=== PATIENT | female | born 1985 | race Caucasian/White ===

== ENCOUNTER 2020-10-03 08:31 | Outpatient (REF) | payer BC, SELFPAY ==
[2020-10-03 11:23] LABS: Glucose Urine UA NEG (NEG); Leukocyte Esterase Urine NEG (NEG); Nitrite Urine NEG (NEG); Specific Gravity - Urine 1.025 (1.005-1.025); Urine Blood 1+ (NEG); Urine Ketones NEG (NEG); Urine Protein NEG (NEG-TRACE)
[2020-10-03 11:24] LABS: Hematocrit 37.4 % (37-47); Hemoglobin 12.9 g/dl (12.0-16.0); Mean Corpuscular HGB Conc 34.5 g/dl (31.0-35.0); Mean Corpuscular Hemoglobin 31.1 pg (27.0-33.0); Mean Corpuscular Volume 90.1 fL (80-98); Mean Platelet Volume 9.7 fL (9.4-12.3); Platelet Count 328 X10*3/uL (160-400); Red Blood Count 4.15 X10*6/uL (4.20-5.50); Red Cell Distribution Width 12.2 % (11.0-16.0); White Blood Count 5.9 X10*3/uL (4.8-10.8)
[2020-10-03 11:28] LABS: Color Urine YELLOW
[2020-10-03 11:29] LABS: Appearance Urine HAZY
[2020-10-03 12:02] LABS: Alanine Aminotransferase 26 U/L (0-31); Alkaline Phosphatase 38 U/L (39-117); Anion Gap 13 (12-20); Aspartate Amino Transferase 24 U/L (5-31); Bilirubin Total 0.7 mg/dL (0.0-1.0); Blood Urea Nitrogen 13 mg/dL (9-16); Calcium 9.2 mg/dL (8.4-10.2); Carbon Dioxide 23 mmol/L (22-29); Chloride 105 mmol/L (96-108); Cholesterol 161 mg/dL; Estimated Glomerular Filt Rate > 60; Glucose Fasting 92 mg/dL (60-99); HDL Cholesterol 62 mg/dL; LDL Cholesterol Calculated 80 mg/dl; Sodium 137 mmol/L (135-145); Total Protein 7.1 g/dL (6.5-8.0); Triglycerides 99 mg/dL
[2020-10-03 12:08] LABS: TSH reflex Free T4 1.53 mIU/mL (0.32-4.0)
[2020-10-03 12:31] LABS: Bacteria Urine 1+ /LPF; Mucus Urine TRACE /LPF; RBC Urine 0-2 /HPF (0); Squamous Epithelial Cell Urine 1+ /LPF; WBC Urine 0-2 /HPF (0-4)
== END 2020-10-03 08:32 | disposition home or self-care (01) ==
LOC: HO.HMGCLDS 08:31
PROVIDERS: PCP Internal Medicine; Visit Provider Internal Medicine
DX: Z00.00 Encounter for general adult medical examination without abnormal findings (principal)
CPT/HCPCS: 36415; 80053; 80061; 81001; 84443; 85027

== ENCOUNTER 2020-10-03 10:12 | Outpatient (REF) | payer BC, SELFPAY | END 2020-10-03 10:13 | disposition home or self-care (01) | LOC: HO.LAB 10:12 | PROVIDERS: Visit Provider Internal Medicine | DX: Z00.00 Encounter for general adult medical examination without abnormal findings (principal) | CPT/HCPCS: 88141; 88142 ==

== ENCOUNTER 2021-06-24 13:00 | Outpatient (RCR) | payer BC, SELFPAY ==
--- NOTE | 2021-05-16 17:15 | MHC.PT.EP ---
[facility] [place] [facility] [place] [facility] [place] [facility] [address] [phone] F: [phone] F: [phone] F: [phone] F: [phone] Physical Therapy Plan of Care Date of Evaluation: Date of Surgery: Diagnosis: L Achilles tendonitis. Assessment: Pt is a 36 y/o female referred to PT for eval and treat of Achilles tendonitis of L ankle who presents with signs and Sx consistent with L ankle dysfunction resulting in decreased tolerance for ambulating for duration, performing fitness activities, and discomfort with transitional movements from sitting/ laying for duration to standing and walking secondary to increased L LE tissue tension, decreased L ankle and B hip strength, decreased tandem stance and L SLS balance, mild pronation and pain. Pt is deemed an appropriate candidate to receive skilled PT in order to address her physical limitations to improve her functional ability. Frequency and Duration: The patient will be seen 2 x / wk x 5 wks. Short Term Goals: Initiate HEP with evidence of compliance. Pt will no longer report pain when initiating standing and walking after a rest. Cupola Liner Goals: I with HEP. Improve L ankle EV MMT to > 4+/5. Pt will be able to walk > 1 mile with managed Sx. Treatment Plan: Modalities to reduce pain, spasms and effusion. Manual therapy to restore motion and function. Therapeutic exercise to improve strength and flexibility. Neuromuscular re-education for posture and balance. Therapeutic activities to return to functional activities of daily living. Electronically signed by: Daniel Branham PT. Please sign and return to therapist. Thank you for your referral.
--- NOTE | 2021-07-10 18:30 | MHC.PT.DC ---
[facility] [place] Office [place] Office [place] Office [address] Luis Carlos Balderas [address] [phone] F: [phone] F: [phone] F: [phone] F: [phone] Physical Therapy Discharge Report Diagnosis: L Achilles tendonitis. Date of Surgery: Date of Evaluation: 05/15/21 Date of Discharge: 07/10/21 Treatments to Date: 10 Cancellations to Date: No Shows to Date: Discharge Status: Achieved Goals Improved Function Independent with HEP Patient Elected to Stop Discharge Summary: 07/10: pt called and reported that she is feeling good and asked to be DC. Pt was able to achieve all of her goals, address her physical impairments, and improve her functional abilities. Electronically signed by: Daniel Branham PT. Please sign and return to therapist. Thank you for your referral.
== END 2021-07-10 18:30 | disposition home or self-care (01) ==
LOC: HO.PTCHIC 13:00
PROVIDERS: PCP Internal Medicine; Visit Provider Internal Medicine
DX: M76.60 Achilles tendinitis, unspecified leg (principal)
CPT/HCPCS: 97110; 97112; 97140; 97161; 97530

== ENCOUNTER 2022-01-27 12:18 | Outpatient (REF) | payer BC, SELFPAY ==
[2022-01-27 14:01] LABS: Hematocrit 38.1 % (37.0-47.0); Hemoglobin 13.1 g/dl (12.0-16.0); Mean Corpuscular HGB Conc 34.4 g/dl (31.0-35.0); Mean Corpuscular Hemoglobin 30.5 pg (27.0-33.0); Mean Corpuscular Volume 88.8 fL (80.0-98.0); Mean Platelet Volume 9.4 fL (9.4-12.3); Platelet Count 328 X10*3/uL (160-400); Red Blood Count 4.29 X10*6/uL (4.20-5.50); Red Cell Distribution Width 12.3 % (11.0-16.0); White Blood Count 6.9 X10*3/uL (4.8-10.8)
[2022-01-27 14:07] LABS: Appearance Urine HAZY; Color Urine YELLOW; Glucose Urine UA NEG (NEG); Leukocyte Esterase Urine 1+ (NEG); Nitrite Urine NEG (NEG); PH 6.5 (5.0-8.0); Urine Blood 2+ (NEG); Urine Ketones NEG (NEG); Urine Protein NEG (NEG-TRACE)
[2022-01-27 14:07] LABS: Estimated Average Glucose 97 mg/dL
[2022-01-27 14:15] LABS: Alanine Aminotransferase 66 U/L (0-31); Albumin Level 4.1 g/dL (3.5-5.0); Alkaline Phosphatase 40 U/L (39-117); Anion Gap 12 (12-20); Aspartate Amino Transferase 36 U/L (5-31); Bilirubin Total 1.3 mg/dL (0.0-1.0); Blood Urea Nitrogen 10 mg/dL (9-16); Calcium 9.6 mg/dL (8.4-10.2); Carbon Dioxide 25 mmol/L (22-29); Chloride 104 mmol/L (96-108); Cholesterol 192 mg/dL; Estimated Glomerular Filt Rate > 60; Glucose Fasting 88 mg/dL (60-99); HDL Cholesterol 55 mg/dL; LDL Cholesterol Calculated 121 mg/dl; Sodium 137 mmol/L (135-145); Total Protein 7.1 g/dL (6.5-8.0); Triglycerides 80 mg/dL
[2022-01-27 14:27] LABS: Bacteria Urine 2+ /LPF; Squamous Epithelial Cell Urine 2+ /LPF
[2022-01-27 14:29] LABS: TSH reflex Free T4 1.35 uIU/mL (0.32-4.0)
== END 2022-01-27 12:19 | disposition home or self-care (01) ==
LOC: HO.HMGCLDS 12:18
PROVIDERS: Visit Provider Internal Medicine
DX: Z00.00 Encounter for general adult medical examination without abnormal findings (principal); I10 Essential (primary) hypertension; R73.9 Hyperglycemia, unspecified
CPT/HCPCS: 36415; 80053; 80061; 81001; 83036; 84443; 85027

== ENCOUNTER 2022-01-27 15:38 | Outpatient (REF) | payer BC, SELFPAY ==
[2022-01-29 17:01] LABS: HPV mRNA E6/E7 Detected (Not Detected)
== END 2022-01-27 15:39 | disposition home or self-care (01) ==
LOC: HO.LAB 15:38
PROVIDERS: Visit Provider Internal Medicine
DX: Z01.419 Encounter for gynecological examination (general) (routine) without abnormal findings (principal); Z11.51 Encounter for screening for human papillomavirus (HPV)
CPT/HCPCS: 87624; 88142

== ENCOUNTER 2022-03-04 12:08 | Outpatient (REF) | payer BC, SELFPAY ==
[2022-03-04 14:06] LABS: Alanine Aminotransferase 33 U/L (0-31); Albumin Level 4.1 g/dL (3.5-5.0); Alkaline Phosphatase 39 U/L (39-117); Aspartate Amino Transferase 24 U/L (5-31); Bilirubin Direct 0.4 mg/dL (0.0-0.5); Bilirubin Total 1.2 mg/dL (0.0-1.0); Total Protein 7.5 g/dL (6.5-8.0)
== END 2022-03-04 12:09 | disposition home or self-care (01) ==
LOC: HO.HMGCLDS 12:08
PROVIDERS: PCP Internal Medicine; Visit Provider Internal Medicine
DX: R79.89 Other specified abnormal findings of blood chemistry (principal)
CPT/HCPCS: 36415; 80076

== ENCOUNTER 2022-07-15 09:24 | Outpatient (REF) | payer BC, SELFPAY ==
[2022-07-20 17:01] LABS: Transglutaminase Ab IgG 1.2 U/mL; Transglutaminase IgA <1.0 U/mL
== END 2022-07-15 09:25 | disposition home or self-care (01) ==
LOC: HO.LAB 09:24
PROVIDERS: PCP Internal Medicine; Visit Provider Nurse Practitioner Family
DX: R10.9 Unspecified abdominal pain (principal)
CPT/HCPCS: 36415; 86364

== ENCOUNTER 2022-09-30 11:05 | Outpatient (REF) | payer BC, SELFPAY ==
--- NOTE | ~2022-09-30 | XR_ITS ---
EXAMINATION: XR SINUSES CLINICAL INFORMATION: Chronic sinusitis COMPARISON: None TECHNIQUE: 4 views of the sinuses were obtained. FINDINGS: Paranasal sinuses appear clear without air-fluid levels. No fractures are identified. No radiodense foreign bodies. The mastoid air cells are well aerated. XR/XR sinus min 3V IMPRESSION: The paranasal sinuses appear clear.
== END 2022-09-30 11:06 | disposition home or self-care (01) ==
LOC: HO.HMGCX 11:05
PROVIDERS: PCP Internal Medicine; Visit Provider Internal Medicine
DX: J32.9 Chronic sinusitis, unspecified (principal)
CPT/HCPCS: 70220

== ENCOUNTER 2022-10-21 15:13 | Outpatient (REF) | payer BC, SELFPAY ==
[2022-10-21 17:13] LABS: Anion Gap 10 (12-20); Blood Urea Nitrogen 18 mg/dL (9-16); Calcium 9.7 mg/dL (8.4-10.2); Carbon Dioxide 26 mmol/L (22-29); Chloride 105 mmol/L (96-108); Estimated Glomerular Filt Rate 52; Glucose Random 115 mg/dL (60-115); Potassium 4.1 mmol/L (3.3-5.1); Sodium 137 mmol/L (135-145)
== END 2022-10-21 15:14 | disposition home or self-care (01) ==
LOC: HO.HMGCLDS 15:13
PROVIDERS: PCP Internal Medicine; Visit Provider Internal Medicine
DX: I10 Essential (primary) hypertension (principal)
CPT/HCPCS: 36415; 80048

== ENCOUNTER 2022-11-26 08:00 | Day surgery (SDC) | payer BC, SELFPAY ==
[2022-11-20 14:02] VITALS: BMI 32.1
[2022-11-26 08:08] VITALS: BP 142/87; PULSE 82; RESP 18; TEMP 36.1; O2SAT 98
[2022-11-26 08:14] LABS: UPreg QC Valid YES
[2022-11-26 08:15] LABS: Urine Pregnancy NEGATIVE (NEGATIVE)
[2022-11-26] MEDS: Lactated Ringers 1,000 ML 50 ML IVCONT (08:24)
--- NOTE | 2022-11-26 09:08 | MHC.SHP ---
Pre-Procedural Eval Section A Date of Service: 11/26/22 Section B Chief Complaint: Gastro-esophageal reflux disease without esophagit Relevant Family History (Specify if Yes): No Relevant Social History: None Present Medications: see Short Stay Collaborative assessment Medical History: Significant History (Achilles tendinitis ADHD Annual physical exam Depression Elevated LFTs HPV test positive HTN (hypertension) Hyperglycemia Obesity) History of Previous Operations: Relevant previous surgery/procedure and date(s) (H/O gastric bypass History of esophagogastroduodenoscopy (EGD) Hx of colonoscopy) Allergies: Allergies Allergy/AdvReac Type Severity Reaction Status Date / Time No Known Allergies Allergy Verified 10/21/22 14:40 Review of Systems Sugical H&P ROS: Negative: Constitution, Cardiovascular, Respiratory, Neurological, Psychiatric, Hem-Onc, Allergic/Immunologic, Gastrointestinal, Genitourinary, Musculoskeletal, Integumentary, Endocrine and Eyes/Ears/Nose/Throat Exam Surgical H&P Exam: Normal: HEENT, Normal: Heart, Normal: Lungs, Normal: Extremities, Normal: Abdomen, Normal: Skin and Normal: Neurological Plan Diagnosis/Plan: Unchanged I have reviewed the history and physical and performed a pertinent physical examination on my patient. No changes have occurred unless specified. Time Spent With Patient Time: Total time managing care of this patient today ____ minutes.
--- NOTE | 2022-11-26 09:14 | HO.ANESPROP2 ---
HPI - Anesthesia Eval Consult details Narrative: 37 F for EGD PMFSH Active Problems Active Problems: All Active Problems (Updated 09/30/22 @ 10:59 by Colette Mckinnon MD) GERD (gastroesophageal reflux disease) (Acute) Sinusitis (Acute) Elevated LFTs (Acute) HPV test positive (Acute) Hyperglycemia (Acute) Depression (Acute) Achilles tendinitis (Acute) HTN (hypertension) (Acute) Annual physical exam (Acute) Past Medical History Medical History Achilles tendinitis ADHD Annual physical exam Depression Elevated LFTs HPV test positive HTN (hypertension) Hyperglycemia Obesity Family History Family History Father HTN (hypertension) Mother HTN (hypertension) Diabetes mellitus Other Mental health disorder Family history of problems with anesthesia: No Surgical History Surgical History H/O gastric bypass History of esophagogastroduodenoscopy (EGD) Hx of colonoscopy History of Problems with Anesthesia: No Social History Social History Household Members Other:: well balanced diet, Housing: House Alcohol intake: current Alcohol intake frequency: holidays/special occasions only Patient Tobacco Use Status: Current everyday Tobacco user e-Cigarette/Vaping Use: Never Used Second Hand Smoke Exposure: No Are you DNR?: No Advance Directives: No Advance Directives Information Provided: Yes Nutrition Risks: No Nutritional Risk Patient : No Current occupational status: employed Cognitive needs: No Hearing needs: No Vision needs: No Meds Allergies Allergy/AdvReac Type Severity Reaction Status Date / Time No Known Allergies Allergy Verified 10/21/22 14:40 Active Medications: Current Medications Lactated Ringer's (Lr) 1,000 mls @ 50 mls/hr IVCONT .Q20H MEL Last Admin: 11/26/22 08:24 Dose: 50 mls/hr Home Medications Medication Instructions Recorded Confirmed Last Taken Type buspirone 15 mg tablet 15 mg PO TID 10/03/20 11/20/22 11/26/22 History dextroamphetamine-amphetamine 10 1 tab PO TID 10/03/20 10/21/22 Unknown History mg tablet escitalopram oxalate 20 mg tablet 30 mg PO DAILY 10/03/20 11/20/22 11/26/22 History lorazepam 0.5 mg tablet 0.5 mg PO DAILY PRN Anxiety 10/03/20 11/20/22 Unknown History dextroamphetamine-amphetamine ER 1 cap PO QAM 01/27/22 11/20/22 Unknown History 20 mg 24hr capsule,extend release Exam Exam Date and Time: November 26, 2022 0914 Height,Weight and Vital Signs: Height 5 ft 6 in Weight 199 lb Last Vital Signs Temp 97 F 11/26/22 08:08 Pulse 82 11/26/22 08:08 Resp 18 11/26/22 08:08 BP 142/87 H 11/26/22 08:08 Pulse Ox 98 11/26/22 08:08 O2 Del Method 11/26/22 08:08 Pertinent Lab Results Pertinent Lab Results: Laboratory Tests 11/26/22 08:08 Urine Test NEGATIVE Airway Mallampati Class: II TM Dist: >3cm Neck ROM: Full Loose/Missing/Broken Teeth: No Assessment and Plan Assessment Anesthesia Assessment: Anesthesia Plan Discussed and Chart Reviewed Final Anesthetic Review Family History of Problems with Anesthesia: No History of Problems with Anesthesia: No NPO: Yes ASA Class: II Final Preanesthetic Review: No Changes in Pt Med Stat, Meds/Allgs Chart Reviewed, Consent Obtained/Reviewed and Anes Risks/Benef Reviewed Patient Risk: Low Procedure Risk: Low Anesthetic Plan Anesthetic Plan: MAC: Disposition: Standard PACU
--- NOTE | 2022-11-26 09:37 | W.PM.OPN ---
Operative Note Operative Note Date of Service: 11/26/22 Narrative: Procedure Description: EGD Indication: GERD Anesthesia: MAC FLEXIBLE TRANSORAL UPPER GASTROINTESTINAL ENDOSCOPY UPPER ENDOSCOPY Consent: Indications for the procedure and potential complications of bleeding, perforation, reaction to medications and missed diagnosis were discussed with the patient and informed consent was obtained. Instrument: Olympus GIF H 190 J mid size upper endoscope Monitoring: Vital signs and clinical assessment, continuous EKG monitoring, Pulse oximetry, Carbon Dioxide monitoring and blood pressure monitoring were done throughout the procedure. Procedure: The patient was placed in the left lateral decubitis position and pre-procedure medications were administered and a bite block was placed. The endoscope was inserted into the mouth and advanced under direct vision to the third part of duodenum. A careful inspection was made as the upper endoscope was withdrawn including a retroflexed examination of the proximal stomach; Findings and interventions are described below. HX of gastric bypass 2013 Findings: Larynx:normal Esophagus: GE junction at 35 cm, diaphragm hiatus at 38 cm, consistent with 3 cm hiatal hernia, aptchy slamon pink tissue noted at GEJ with one possible short segment of barretts mucosa, bx taken from GEJ, distal and proximal esophagus. Small inlet patches seen proximal esophagus Stomach pouch: Normal. Biopsies were obtained. Grade 3 flap valve on retroflexed examination of the cardia. jejunum: Normal, bx taken Intervention: Biopsies as noted above Impression/Findings: hiatal hernia inlet patch suspected barretts esophagus PLAN: continue with PPi as it is working repeat EGD in 1-2 yrs with WATS next time. GERD precautions,.
[2022-11-26 09:45] VITALS: BP 98/73; PULSE 78; RESP 20; TEMP 36.6; O2SAT 97
[2022-11-26 10:00] VITALS: BP 138/82; PULSE 75; RESP 18; TEMP 36.1; O2SAT 100
== END 2022-11-26 10:23 | disposition home or self-care (01) ==
PROVIDERS: Anesthesiology; PCP Internal Medicine; Visit Provider Internal Medicine Gastroenterology
PROC: 0DJ08ZZ Inspection of Upper Intestinal Tract, Via Natural or Artificial Opening Endoscopic (ICD-10-PCS; CPT 43235; principal; 2022-11-26 09:20)
DX: K21.9 Gastro-esophageal reflux disease without esophagitis (principal); K44.9 Diaphragmatic hernia without obstruction or gangrene; K22.70 Barrett's esophagus without dysplasia; K31.7 Polyp of stomach and duodenum
CPT/HCPCS: 43239; 81025; 88305; 88342

== ENCOUNTER → 2022-12-09 08:00 | Outpatient (BNVA) | payer BC, SELFPAY | PROVIDERS: PCP Internal Medicine; Referring Provider Internal Medicine; Visit Provider Nurse Practitioner Family | DX: Z13.89 Encounter for screening for other disorder (principal) ==

== ENCOUNTER 2023-02-03 06:21 | Outpatient (REF) | payer BC, SELFPAY ==
[2023-02-03 11:41] LABS: Hematocrit 38.5 % (37.0-47.0); Mean Corpuscular HGB Conc 33.8 g/dl (31.0-35.0); Mean Corpuscular Hemoglobin 30.7 pg (27.0-33.0); Mean Platelet Volume 9.4 fL (9.4-12.3); Platelet Count 328 X10*3/uL (160-400); Red Blood Count 4.23 X10*6/uL (4.20-5.50); White Blood Count 6.3 X10*3/uL (4.8-10.8)
[2023-02-03 11:49] LABS: Estimated Average Glucose 100 mg/dL; Hemoglobin A1c % 5.1 %
[2023-02-03 12:08] LABS: Alanine Aminotransferase 31 U/L (0-31); Albumin Level 3.8 g/dL (3.5-5.0); Alkaline Phosphatase 41 U/L (39-117); Anion Gap 11 (12-20); Aspartate Amino Transferase 24 U/L (5-31); Blood Urea Nitrogen 14 mg/dL (9-16); Calcium 9.5 mg/dL (8.4-10.2); Carbon Dioxide 24 mmol/L (22-29); Chloride 106 mmol/L (96-108); Cholesterol 185 mg/dL; Estimated Glomerular Filt Rate > 60; Glucose Fasting 108 mg/dL (60-99); HDL Cholesterol 66 mg/dL; LDL Cholesterol Calculated 102 mg/dl; Potassium 4.1 mmol/L (3.3-5.1); Sodium 137 mmol/L (135-145); Total Protein 6.7 g/dL (6.5-8.0); Triglycerides 89 mg/dL
== END 2023-02-03 06:22 | disposition home or self-care (01) ==
LOC: HO.HMGCLDS 06:21
PROVIDERS: PCP Internal Medicine; Visit Provider Internal Medicine
DX: Z00.00 Encounter for general adult medical examination without abnormal findings (principal); I10 Essential (primary) hypertension; R73.9 Hyperglycemia, unspecified
CPT/HCPCS: 36415; 80053; 80061; 83036; 85027

== ENCOUNTER → 2023-03-02 07:50 | Outpatient (REF) | payer BC, SELFPAY ==
--- NOTE | 2023-03-02 07:54 | CA_ITS ---
Transthoracic Echocardiogram Patient (Last, First, Middle): Sally Munoz, Gender: Female Date of : 1985 Age: 38 Procedure Date: 03/02/2023 Procedure Type: Transthoracic Echocardiogram Location: OP Height: 167.64 cm Weight: 90.72 kg BSA: 2.00 m2 Heart Rate: bpm BP: 130 / 88 mmHg Creative Services Director: TO Referring MD: Colette Mckinnon MD Symptoms: R00.0 - Tachycardia, unspecified Study Quality: Fair/Contrast ECG Rhythm: Sinus Conclusions: - The left ventricular systolic function is hyperdynamic. The visually estimated ejection fraction is >70%. - No obvious valvular pathology seen on this study. Findings Procedure Information Contrast agent, definity, is being given per protocol without apparent complications. Left Ventricle Normal left ventricular cavity size. The left ventricular systolic function is hyperdynamic. The visually estimated ejection fraction is >70%. There is no evidence of regional wall motion abnormalities. There is mild septal asymmetric hypertrophy. Slight gradient across the LVOT; no significant change with Valsalva. Right Ventricle Normal right ventricular cavity size and systolic function. Atria Both atria are normal in size. Aortic Valve There is a normal trileaflet aortic valve. There is no aortic valve stenosis. There is no aortic valve regurgitation. Mitral Valve The mitral valve appears normal. There is trace mitral valve regurgitation. There is no mitral valve stenosis. Pulmonic Valve The pulmonic valve is likely normal. Tricuspid Valve There is trace tricuspid valve regurgitation. There is no evidence of pulmonary hypertension. Great Vessels The asc aorta is normal in size. Venous The inferior vena cava is normal in size and collapses less than 50% with inspiration. Pericardium/Pleural There is no evidence of pericardial effusion. Prior Study Comparison No prior study available for comparison. Recommendations, Care & Conclusions No obvious valvular pathology seen on this study. Measurements 2D Linear Measurements IVSd: 1.19 0.6-0.9/0.6-1.0 cm LVIDd: 4.12 3.9-5.3/4.2-5.9 cm LVIDd Index: 2.06 2.4-3.2/2.2-3.1 cm/m2 LVIDs: 2.36 2.0-3.6 cm LVPWd: 0.91 0.7-1.1 cm LA Diam: 3.30 2.7-3.8/3.0-4.0 cm LAIDs Index: 1.65 1.5-2.3 cm/m2 LV Mass: 176.93 67-162/88-224 g LV Mass Index: 88.47 43-95/49-115 g/m2 LVOT Diam: 2.20 3.0+(-)1.3 cm 2D Systolic Function EF 4C: 61.00 >55% EF 2C: 59.70 >55% EF BiP: 60.20 >55% Mitral Valve MV Pk E: 0.68 MV PK A: 0.89 MV Decel Time: 191.00 E/A: 0.80 E'Lateral: 8.81 E'Medial: 7.51 E/E' Med: 9.10 E/E' Lat: 7.70 PHT: 56.00 MVA PHT: 3.93 Decel [place]: 3.57 Aortic Valve AoV Pk Jay[place]: 1.71 AoV Mn Jay[place]: 1.25 AoV VTI: 0.32 AoV Pk Grad: 12.00 Aov Mn Grad: 7.00 ENDER Cont.VTI: 3.94 LVOT LVOT Pk [place]: 1.67 LVOT Mn [place]: 1.23 LVOT VTI: 0.33 LVOT Pk Grad: 11.00 LVOT Mn Grad: 7.00 LVOT Diam: 2.20 LVOT Area: 3.80 Diastolic Function MV Pk E: 0.68 MV Pk A: 0.89 E/A: 0.80 E'Medial: 7.51 E/E' Med: 9.10 E' Laterial: 8.81 E/E' Lat: 7.70 Right Ventricle TAPSE (mm): 24.80 TVS' Jay[place]: 13.20 Tricuspid Valve TR Pk Jay[place]: 2.59 TR Pk Grad: 27.00 RA Press: 8.00 RVSP: 35.00 Great Vessels Aorta Sinus of Valsalva: 3.32 2.0-3.[address] [place]: 2.69 1.7-3.4 cm Ao Asc: 3.20 2.1-3.4 cm Updated in Other Vendor System with Status of Final Merrill Montero MD electronically signed on 03/03/2023 11:56:15 AM with status of Final
--- NOTE | 2023-03-02 07:54 | HM_ITS ---
* Total monitoring time 2 days. * Underlying rhythm is sinus. Average ventricular rate 99/Min. Range 62 to 165/Min. * About 43% of the time, rate > 100/Min. * Extremely rare supraventricular and ventricular ectopy. * No significant pauses or AV blocks. * No patient markers or events in diary. MTDD
== END ==
LOC: HO.CARD 07:50
PROVIDERS: PCP Internal Medicine; Visit Provider Internal Medicine
DX: R00.0 Tachycardia, unspecified (principal); I49.3 Ventricular premature depolarization
CPT/HCPCS: 93225; 93306; Q9957

== ENCOUNTER 2023-06-08 07:54 | Outpatient (AMB) | payer BC, SELFPAY ==
--- NOTE | 2023-06-08 08:01 | MHC.OFFVIS ---
Intake Vital Signs 06/08/23 08:10 Height 5 ft 6 in Weight 199 lb BMI 32.1 BP 150/73 H Blood Pressure Location Lt brachial Position Sitting Pulse 120 H Intake Visit Reasons: 6 month follow up Intake Note: Patient follow up for GERD. Patient denies any GI issues, Omeprazole is working really good for her. Court Attendant Required: No Accompanied by: Self / Same As Patient Allergies No Known Allergies Allergy (Verified 06/08/23 08:00) HPI 6 month follow up HPI Details LAST VISIT GERD (gastroesophageal reflux disease) Discussed with patient avoiding dietary triggers and is hiking. Staying upright for minimum 3 hours after meals discussed with patient. Continue omeprazole. Continue trying to lose weight. Increase exercise. Avoid stressors as much as possible Bonilla's esophagus determined by biopsy Patient diagnosed with Bonilla's at the GE junction. Continue omeprazole. Weight loss discussed with patient. Healthy eating habits. I will see patient in 6 months. Patient will need to have upper endoscopy repeated in 1 year or so. Patient is agreeable to this plan and verbalizes understanding of instructions. She was given the opportunity to ask questions and all questions answered. TODAY'S VISIT: Patient is here today for follow-up. Patient reports that since she started omeprazole she has been doing well. Patient reports that she has been taking every morning. Denies any acid reflux, dyspepsia, dysphagia or odynophagia. Patient denies any GI concerning symptoms. Patient reports that she is feeling well. Able to tolerate food without any issues. Moving her bowels well. Denies melena, hematochezia, unintentional weight loss or ribbon like stools. [facility] Medical History Achilles tendinitis ADHD Annual physical exam Depression Elevated LFTs HPV test positive HTN (hypertension) Hyperglycemia Obesity Surgical History H/O gastric bypass History of esophagogastroduodenoscopy (EGD) Hx of colonoscopy Family History Father HTN (hypertension) Mother HTN (hypertension) Diabetes mellitus Other Mental health disorder Social History Household Members Other:: well balanced diet, Housing: House Alcohol intake: current Alcohol intake frequency: holidays/special occasions only Patient Tobacco Use Status: Current everyday Tobacco user e-Cigarette/Vaping Use: Never Used Second Hand Smoke Exposure: No Current occupational status: employed Cognitive needs: No Hearing needs: No Vision needs: No Review of Systems Const Denies weight gain and Denies weight loss ENT Reports no additional complaints, Denies dysphagia and Denies odynophagia Card Reports no additional complaints Resp Reports no additional complaints GI Denies abdominal pain, Denies belching, Denies melena, Denies bloating, Denies change in bowel habits, Denies dysphagia, Denies excessive flatus, Denies dyspepsia, Denies heartburn, Denies diarrhea, Denies loose stools, Denies nausea, Denies odynophagia and Denies vomiting Reports no additional complaints Musc Reports no additional complaints Neuro Reports no additional complaints Psych Reports no additional complaints Endo Reports no additional complaints Physical Exam Const General: healthy appearing, no acute distress and well developed Nutritional Appearance: obese Orientation/consciousness: patient oriented x3 HEENT Head: Yes normal to inspection, Yes normocephalic and Yes atraumatic Face and sinus: Yes normal facial exam Mouth: Normal oral and palatal mucosa present Throat: Yes posterior oropharynx normal, Yes tonsils normal and Yes uvula midline Eyes General: appearance normal, both eyes and all related structures Neck Neck: Yes normal visual inspection, Yes full ROM and Yes trachea midline Thyroid: Thyroid normal Resp Effort & Inspection: normal respiratory effort, able to speak in complete sentences, no tracheal deviation and symmetric chest movement Auscultation: clear to auscultation bilaterally Cardio Rate: regular rate Heart sounds: S1 normal heart sound present and S2 normal heart sound present GI Inspection: Yes normal to inspection, No distended and Yes obesity Palpation (GI): Soft to palpation, not firm, nontender and No hepatosplenomegaly present Auscultation: normal bowel sounds General: Yes no CVA tenderness Back/Spine/Pelvis Back: no CVA tenderness Skin General skin exam: elasticity normal, turgor normal and dry skin Neuro General: patient oriented x3 Psych Appearance: grossly normal Mental Status: mental status grossly normal Speech and movement: Normal speech and movement present Assessment & Plan Assessment & Plan (1) GERD (gastroesophageal reflux disease): Code(s): K21.9 - Gastro-esophageal reflux disease without esophagitis Qualifiers: Esophagitis presence: esophagitis presence not specified Qualified Code(s): K21.9 - Gastro-esophageal reflux disease without esophagitis Plan: Continue omeprazole 20 mg every morning half an hour before breakfast. Avoid dietary triggers and late night snacking. Staying upright for minimum 3 hours after meals discussed with patient. (2) Bonilla's esophagus determined by biopsy: Code(s): K22.70 - Bonilla's esophagus without dysplasia Plan: Bonilla's esophagus found on upper endoscopy in November of 2022. Will repeat upper endoscopy within a year or so. Patient can continue treatment with omeprazole every morning. Avoid dietary trigger is. Patient will call our office if she will have any issues. I will see her in 1 year, sooner on as needed basis. Patient is agreeable to this plan and verbalizes understanding of instructions. She was given the opportunity to ask questions and all questions answered. Thank you for allowing me to participate in her care Medications: Refilled omeprazole 20 mg PO DAILY 90 caps 3RF Coding Level of Care Code Est Pt Level 3 (66886) Diagnoses GERD (gastroesophageal reflux disease) K21.9 Esophagitis presence: esophagitis presence not specified Bonilla's esophagus determined by biopsy K22.70 Time Spent (min) 25 Comment 15 minutes spent with patient and additional 10 minutes spent reviewing her records
[2023-06-08 08:10] VITALS: BP 150/73; PULSE 120; BMI 32.1
== END 2023-06-08 08:22 | disposition home or self-care (01) ==
PROVIDERS: PCP Internal Medicine; Visit Provider Nurse Practitioner Family
DX: K21.9 Gastro-esophageal reflux disease without esophagitis (principal); K22.70 Barrett's esophagus without dysplasia
CPT/HCPCS: 99213

== ENCOUNTER → 2023-06-08 07:54 | Outpatient (BNVA) | payer BC, SELFPAY | PROVIDERS: PCP Internal Medicine; Visit Provider Nurse Practitioner Family ==

== ENCOUNTER 2023-11-03 13:11 | Emergency (ER) | payer OTHER, BC, SELFPAY ==
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
[2023-11-03 14:02] VITALS: BP 129/69; PULSE 99; RESP 16; TEMP 37; O2SAT 99; BMI 32.6
--- NOTE | 2023-11-03 14:02 | ED_ITS ---
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 your right wrist/hand, you began to have pain, numbness, tingling within the right fingers, you are unable to move the fingers, or the pain becomes unbearable please return to the emergency department as these are all signs that the splint needs to be removed. YOU NEED TO FOLLOW-UP WITH ORTHOPEDICS THIS WEEK. YOU HAVE BEEN PROVIDED WITH A REFERRAL. CALL THEM TO MAKE AN APPOINTMENT. THEY WILL NOT CALL YOU. The x-ray of your right knee was normal. The x-ray of your right ankle shows minimal swelling, likely ankle sprain. The CT of your head/brain did not show acute bleed. The CT of your neck did not show acute fracture. The CT of your chest was normal. The CT of your abdomen shows bruising along your abdominal wall. No intra- abdominal bleeding. Oxycodone is a narcotic pain medication. Six tabs have been sent to your pharmacy for you to take as needed for pain. Zofran is anti emetic. Take this as needed for nausea. <PEARL Resendiz - Last Filed: 11/03/23 14:14> Prescriptions: New oxycodone 5 mg tablet 5 mg PO Q8H PRN (Reason: pain (scale score 7-10)) Qty: 6 0RF Rx Instructions: Partial Fill upon patient request. ondansetron 4 mg tablet,disintegrating 4 mg PO DAILY PRN (Reason: nausea and vomiting) 5 Days Qty: 10 0RF No Action desogestrel-ethinyl estradiol [Isibloom] 0.15-0.03 mg tablet 1 tab PO DAILY Qty: 112 3RF amlodipine 5 mg tablet 5 mg PO DAILY Qty: 90 3RF olmesartan-hydrochlorothiazide 40-25 mg tablet 1 tab PO DAILY Qty: 90 3RF buspirone 15 mg tablet 15 mg PO TID dextroamphetamine-amphetamine 10 mg tablet 1 tab PO TID lorazepam 0.5 mg tablet 0.5 mg PO DAILY PRN (Reason: Anxiety) escitalopram oxalate 20 mg tablet 20 mg PO DAILY dextroamphetamine-amphetamine 20 mg capsule,extended release 24hr 20 cap PO QAM omeprazole 20 mg capsule,delayed release(DR/EC) 20 mg PO DAILY Qty: 90 3RF <PEARL Resendiz - Last Filed: 11/03/23 14:14> Referrals: [facility] [Provider Group] - 3 days <PEARL Resendiz - Last Filed: 11/03/23 14:14> Stand Alone Forms: Work/School Release <PEARL Resendiz - Last Filed: 11/03/23 14:14> Interventions: ED Discharge Assessment Last Done: 11/03/23 19:51 <PEARL Resendiz - Last Filed: 11/03/23 14:14> Discharge Date/Time: 11/03/23 19:52 <PEARL Resendiz - Last Filed: 11/03/23 14:14>
[2023-11-03 14:43] LABS: MANUAL DIFF FLAG NO
[2023-11-03 14:49] LABS: Appearance Urine Clear; Color Urine Yellow; Glucose Urine UA Negative (Negative); Leukocyte Esterase Urine Negative (Negative); Nitrite Urine Negative (Negative); Specific Gravity - Urine 1.015 (1.005-1.025); Urine Blood Negative (Negative); Urine Ketones Negative (Negative); Urine Protein Negative (Neg-Trace)
[2023-11-03 14:50] LABS: Basophils Percent Auto 0.2 % (0-2); Eosinophils Absolute Auto 0.1 X10*3/uL (0.0-0.4); Eosinophils Percent Auto 0.9 % (0-4); Hematocrit 31.3 % (37.0-47.0); Imm Gran Abs Auto 0.04 X10*3/uL (0.00-0.03); Imm Gran Pct Auto 0.4 % (0.0-0.4); Lymphocytes Absolute Auto 1.7 X10*3/uL (1.2-4.9); Lymphocytes Percent Auto 19.4 % (20-40); Mean Corpuscular HGB Conc 35.1 g/dl (31.0-35.0); Mean Corpuscular Hemoglobin 30.9 pg (27.0-33.0); Mean Corpuscular Volume 87.9 fL (80.0-98.0); Mean Platelet Volume 8.8 fL (9.4-12.3); Monocytes Percent Auto 11.3 % (2-11); Neutrophils Percent Auto 67.8 % (45-73); Platelet Count 295 X10*3/uL (160-400); Red Blood Count 3.56 X10*6/uL (4.20-5.50); Red Cell Distribution Width 12.7 % (11.0-16.0); White Blood Count 8.9 X10*3/uL (4.8-10.8)
[2023-11-03 14:54] LABS: INTERNATIONAL NORM RATIO 0.9 (0.9-1.1); Prothrombin Time 11.1 SEC (11.1-13.3)
[2023-11-03 15:22] LABS: Alanine Aminotransferase 69 U/L (0-31); Albumin Level 3.7 g/dL (3.5-5.0); Alkaline Phosphatase 39 U/L (39-117); Anion Gap 13 (12-20); Aspartate Amino Transferase 56 U/L (5-31); Bilirubin Direct 0.4 mg/dL (0.0-0.5); Bilirubin Total 1.4 mg/dL (0.0-1.0); Blood Urea Nitrogen 21 mg/dL (9-16); Calcium 9.4 mg/dL (8.4-10.2); Carbon Dioxide 25 mmol/L (22-29); Chloride 100 mmol/L (96-108); Creatinine Clr Calc Pharmacy 106.3; Estimated Glomerular Filt Rate > 60; Glucose Random 142 mg/dL (60-115); HCG Quantitative < 2 mIU/mL; Lipase 13 U/L (8-78); Magnesium 1.5 mg/dL (1.6-2.6); Sodium 135 mmol/L (135-145); Total Protein 6.9 g/dL (6.5-8.0)
[2023-11-03] MEDS: Acetaminophen 325 MG TABLET 650 MG PO (15:58)
[2023-11-03] MEDS: Potassium Chloride ER 20 MEQ TAB.ER.PRT 40 MEQ PO (15:58)
[2023-11-03] MEDS: Magnesium Oxide 400 MG TABLET PO (15:59)
[2023-11-03 16:18] VITALS: BP 116/62; PULSE 91; RESP 16; O2SAT 100
[2023-11-03] MEDS: iohexoL 350 MG/ML 100 ML INFUS..BTL IV (17:09)
[2023-11-03] MEDS: Ondansetron ODT 4 MG TAB.RAPDIS TRANSLINGU (17:29)
[2023-11-03 18:00] VITALS: BP 114/60; PULSE 87; RESP 20; TEMP 36.8; O2SAT 100
--- NOTE | 2023-11-03 18:12 | PC.NURSE ---
repeat labs sent per order. placed on tele per jane corona. no distress. given new ice packs for wrist- declined ice to r knee. elevated w pillows.
[2023-11-03 18:25] LABS: Anion Gap 13 (12-20); Blood Urea Nitrogen 19 mg/dL (9-16); Calcium 9.3 mg/dL (8.4-10.2); Carbon Dioxide 25 mmol/L (22-29); Chloride 102 mmol/L (96-108); Creatinine Clr Calc Pharmacy 124.8; Estimated Glomerular Filt Rate > 60; Glucose Random 109 mg/dL (60-115); Potassium 3.7 mmol/L (3.3-5.1); Sodium 136 mmol/L (135-145)
[2023-11-03] MEDS: Morphine Sulfate 2 MG/ML CARTRIDGE IVPUSH (18:39)
[2023-11-03 18:51] LABS: Magnesium 1.7 mg/dL (1.6-2.6)
[2023-11-03 19:24] LABS: Potassium 2.8 mmol/L (3.3-5.1)
== END 2023-11-03 19:52 | disposition home or self-care (01) ==
PROVIDERS: Physician Assistant; Physician Assistant Medical; Emergency Provider Student in an Organized Health Care Education/Training Program; PCP Internal Medicine
DX: S52.501A Unspecified fracture of the lower end of right radius, initial encounter for closed fracture (principal); S62.396A Other fracture of fifth metacarpal bone, right hand, initial encounter for closed fracture; S52.611A Displaced fracture of right ulna styloid process, initial encounter for closed fracture; S60.211A Contusion of right wrist, initial encounter; S80.01XA Contusion of right knee, initial encounter; S30.1XXA Contusion of abdominal wall, initial encounter; S90.01XA Contusion of right ankle, initial encounter; V43.52XA Car driver injured in collision with other type car in traffic accident, initial encounter; D64.9 Anemia, unspecified; E87.6 Hypokalemia; E83.42 Hypomagnesemia; Y93.89 Activity, other specified; Y92.414 Local residential or business street as the place of occurrence of the external cause; Y99.9 Unspecified external cause status; Z98.84 Bariatric surgery status; I10 Essential (primary) hypertension
CPT/HCPCS: 29125; 36415; 70450; 71260; 72125; 73110; 73130; 73562; 73610; 74177; 80048; 80076; 81003; 83690; 83735; 84702; 85025; 85610; 96374; 99284; J2270; Q9967

== ENCOUNTER 2023-11-05 08:43 | Outpatient (AMB) | payer OTHER, BC, SELFPAY ==
[2023-11-05 08:46] VITALS: BMI 32.4
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
== END 2023-11-05 10:23 | disposition home or self-care (01) ==
PROVIDERS: PCP Internal Medicine; Visit Provider Physician Assistant
DX: S52.591A Other fractures of lower end of right radius, initial encounter for closed fracture (principal); S62.336A Displaced fracture of neck of fifth metacarpal bone, right hand, initial encounter for closed fracture
CPT/HCPCS: 25600; 99203

== ENCOUNTER 2023-11-05 08:43 | Outpatient (REF) | payer BC, SELFPAY ==
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
== END 2023-11-05 08:44 | disposition home or self-care (01) ==
LOC: HO.HOSX 08:43
PROVIDERS: PCP Internal Medicine; Visit Provider Physician Assistant
DX: S52.591A Other fractures of lower end of right radius, initial encounter for closed fracture (principal); S62.336A Displaced fracture of neck of fifth metacarpal bone, right hand, initial encounter for closed fracture
CPT/HCPCS: 25600; 73110; 73130

== ENCOUNTER 2023-11-09 09:18 | Outpatient (AMB) | payer BC, SELFPAY ==
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
[2023-11-09 09:23] VITALS: BMI 32.4
== END 2023-11-09 10:43 | disposition home or self-care (01) ==
PROVIDERS: PCP Internal Medicine; Visit Provider Orthopaedic Surgery
DX: S52.591A Other fractures of lower end of right radius, initial encounter for closed fracture (principal); S62.336A Displaced fracture of neck of fifth metacarpal bone, right hand, initial encounter for closed fracture; Z04.3 Encounter for examination and observation following other accident
CPT/HCPCS: 29075; 99024

== ENCOUNTER 2023-11-09 09:35 | Outpatient (REF) | payer OTHER, BC, SELFPAY ==
--- NOTE | ~2023-11-09 | XR_ITS ---
EXAMINATION: XR WRIST, RIGHT CLINICAL INFORMATION: Right wrist pain COMPARISON: 11/05/2023 TECHNIQUE: PA, lateral, and oblique views of the right wrist. FINDINGS: Redemonstration of comminuted intra-articular and impacted fracture of the distal radius with dorsal angulation of the distal fracture fragment. Avulsion fracture of the ulnar styloid is again noted. Soft tissue swelling about the wrist. Fracture of the distal fifth metacarpal with volar angulation. XR/XR wrist RT min 3V IMPRESSION: Redemonstration of comminuted intra-articular and impacted fracture of the distal radius with dorsal angulation of the distal fracture fragment. Avulsion fracture of the ulnar styloid is again noted.
== END 2023-11-09 09:36 | disposition home or self-care (01) ==
LOC: HO.HOSX 09:35
PROVIDERS: Visit Provider Orthopaedic Surgery
DX: S52.591A Other fractures of lower end of right radius, initial encounter for closed fracture (principal); S62.336A Displaced fracture of neck of fifth metacarpal bone, right hand, initial encounter for closed fracture
CPT/HCPCS: 29075; 73110

== ENCOUNTER 2023-11-18 09:53 | Outpatient (AMB) | payer OTHER, BC, SELFPAY ==
[2023-11-18 09:56] VITALS: BMI 32.4
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
== END 2023-11-18 10:54 | disposition home or self-care (01) ==
PROVIDERS: PCP Internal Medicine; Visit Provider Physician Assistant
DX: S52.591A Other fractures of lower end of right radius, initial encounter for closed fracture (principal); S62.336A Displaced fracture of neck of fifth metacarpal bone, right hand, initial encounter for closed fracture
CPT/HCPCS: 29075; 99024

== ENCOUNTER 2023-11-18 12:39 | Outpatient (REF) | payer OTHER, SELFPAY ==
--- NOTE | ~2023-11-18 | XR_ITS ---
EXAMINATION: XR WRIST, RIGHT CLINICAL INFORMATION: Right wrist pain, taken off cast COMPARISON: Right wrist x-ray on 11/09/2023 TECHNIQUE: PA, lateral, and oblique views of the right wrist. FINDINGS: BONES: Persistent comminuted fracture distal right radius extending to the radiocarpal joint articular surface is seen with mild impaction and dorsal angulation. No obvious callus formation or bony union could be seen. JOINTS: Alignment of joints is normal. SOFT TISSUE: Soft tissue is normal. No radiopaque foreign body or abnormal air collection is seen. XR/XR wrist RT min 3V IMPRESSION: Persistent comminuted fracture distal right radius extending to the radiocarpal joint articular surface with mild impaction and dorsal angulation.
== END 2023-11-18 12:40 | disposition home or self-care (01) ==
LOC: HO.HOSX 12:39
PROVIDERS: Visit Provider Physician Assistant
DX: S52.591D Other fractures of lower end of right radius, subsequent encounter for closed fracture with routine healing (principal); S62.366D Nondisplaced fracture of neck of fifth metacarpal bone, right hand, subsequent encounter for fracture with routine healing
CPT/HCPCS: 29075; 73110

== ENCOUNTER 2023-12-10 09:27 | Outpatient (AMB) | payer BC, SELFPAY ==
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
[2023-12-10 09:49] VITALS: BMI 32.4
== END 2023-12-10 10:10 | disposition home or self-care (01) ==
PROVIDERS: PCP Internal Medicine; Visit Provider Physician Assistant
DX: S52.591A Other fractures of lower end of right radius, initial encounter for closed fracture (principal); S62.336A Displaced fracture of neck of fifth metacarpal bone, right hand, initial encounter for closed fracture
CPT/HCPCS: 99024

== ENCOUNTER 2023-12-10 16:05 | Outpatient (REF) | payer BC, SELFPAY ==
--- NOTE | ~2023-12-10 | XR_ITS ---
EXAMINATION: XR WRIST, HAND RIGHT CLINICAL INFORMATION: Right wrist pain, taken off cast COMPARISON: 11/05/2023, 11/03/2023,, 11/18/2023 TECHNIQUE: PA, lateral, and oblique views of the right wrist. FINDINGS: Redemonstration of a comminuted fracture of the distal right radius extending to the distal articular surface of the radiocarpal joint with mild impaction and angulation. XR/XR wrist RT min 3V IMPRESSION: Redemonstration of a comminuted fracture of the distal right radius extending to the distal articular surface of the radiocarpal joint with mild impaction and angulation. Fracture distal right radius extending to the radiocarpal joint articular surface is seen with mild impaction and dorsal angulation. No obvious callus formation or bony union could be seen.
--- NOTE | ~2023-12-10 | XR_ITS ---
EXAMINATION: XR WRIST, HAND RIGHT CLINICAL INFORMATION: Right wrist pain, taken off cast COMPARISON: 11/05/2023, 11/03/2023,, 11/18/2023 TECHNIQUE: PA, lateral, and oblique views of the right wrist. FINDINGS: Redemonstration of a comminuted fracture of the distal right radius extending to the distal articular surface of the radiocarpal joint with mild impaction and angulation. XR/XR hand RT min 3V IMPRESSION: Redemonstration of a comminuted fracture of the distal right radius extending to the distal articular surface of the radiocarpal joint with mild impaction and angulation. Fracture distal right radius extending to the radiocarpal joint articular surface is seen with mild impaction and dorsal angulation. No obvious callus formation or bony union could be seen.
== END 2023-12-10 16:06 | disposition home or self-care (01) ==
LOC: HO.HOSX 16:05
PROVIDERS: Visit Provider Physician Assistant
DX: S52.591D Other fractures of lower end of right radius, subsequent encounter for closed fracture with routine healing (principal); S62.336D Displaced fracture of neck of fifth metacarpal bone, right hand, subsequent encounter for fracture with routine healing
CPT/HCPCS: 73110; 73130

== ENCOUNTER 2024-01-07 08:52 | Outpatient (REF) | payer BC, SELFPAY ==
--- NOTE | ~2024-01-07 | XR_ITS ---
EXAMINATION: XR WRIST, RIGHT XR HAND, RIGHT CLINICAL INFORMATION: Right wrist pain, taken off cast. COMPARISON: 12/10/2023, 11/05/2023, 11/03/2023, 11/18/2023. TECHNIQUE: PA, lateral, and oblique views of the right wrist. FINDINGS: Redemonstration of a comminuted fracture of the distal right radius extending to the distal articular surface of the radiocarpal joint with mild impaction and angulation. Fracture lines are still visible, but there has been some interval bridging callus formation. XR/XR wrist RT min 3V IMPRESSION: Healing comminuted fracture of the distal right radius extending to the distal articular surface.
--- NOTE | ~2024-01-07 | XR_ITS ---
EXAMINATION: XR WRIST, RIGHT XR HAND, RIGHT CLINICAL INFORMATION: Right wrist pain, taken off cast. COMPARISON: 12/10/2023, 11/05/2023, 11/03/2023, 11/18/2023. TECHNIQUE: PA, lateral, and oblique views of the right wrist. FINDINGS: Redemonstration of a comminuted fracture of the distal right radius extending to the distal articular surface of the radiocarpal joint with mild impaction and angulation. Fracture lines are still visible, but there has been some interval bridging callus formation. XR/XR hand RT min 3V IMPRESSION: Healing comminuted fracture of the distal right radius extending to the distal articular surface.
== END 2024-01-07 08:53 | disposition home or self-care (01) ==
LOC: HO.HOSX 08:52
PROVIDERS: Visit Provider Physician Assistant
DX: S52.591D Other fractures of lower end of right radius, subsequent encounter for closed fracture with routine healing (principal); S62.336D Displaced fracture of neck of fifth metacarpal bone, right hand, subsequent encounter for fracture with routine healing
CPT/HCPCS: 73110; 73130

== ENCOUNTER 2024-01-07 09:21 | Outpatient (AMB) | payer OTHER, SELFPAY ==
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
[2024-01-07 09:37] VITALS: BMI 32.4
== END 2024-01-07 12:35 | disposition home or self-care (01) ==
PROVIDERS: PCP Internal Medicine; Visit Provider Physician Assistant
DX: S52.591A Other fractures of lower end of right radius, initial encounter for closed fracture (principal); S62.336A Displaced fracture of neck of fifth metacarpal bone, right hand, initial encounter for closed fracture
CPT/HCPCS: 99024

== ENCOUNTER 2024-02-05 08:01 | Outpatient (REF) | payer BC, SELFPAY ==
[2024-02-05 11:33] LABS: MANUAL DIFF FLAG NO
[2024-02-05 11:37] LABS: Basophils Percent Auto 0.4 % (0-2); Eosinophils Absolute Auto 0.1 X10*3/uL (0.0-0.4); Eosinophils Percent Auto 1.5 % (0-4); Hematocrit 39.2 % (37.0-47.0); Hemoglobin 13.6 g/dl (12.0-16.0); Imm Gran Abs Auto 0.02 X10*3/uL (0.00-0.03); Imm Gran Pct Auto 0.3 % (0.0-0.4); Lymphocytes Absolute Auto 1.6 X10*3/uL (1.2-4.9); Lymphocytes Percent Auto 23.9 % (20-40); Mean Corpuscular HGB Conc 34.7 g/dl (31.0-35.0); Mean Corpuscular Hemoglobin 30.8 pg (27.0-33.0); Mean Corpuscular Volume 88.7 fL (80.0-98.0); Mean Platelet Volume 9.3 fL (9.4-12.3); Monocytes Absolute Auto 0.5 X10*3/uL (0.1-1.2); Monocytes Percent Auto 7.6 % (2-11); Neutrophils Absolute Auto 4.5 x10*3/uL (2.0-8.3); Neutrophils Percent Auto 66.3 % (45-73); Platelet Count 388 X10*3/uL (160-400); Red Blood Count 4.42 X10*6/uL (4.20-5.50); Red Cell Distribution Width 12.5 % (11.0-16.0); White Blood Count 6.8 X10*3/uL (4.8-10.8)
[2024-02-05 11:44] LABS: Estimated Average Glucose 97 mg/dL
[2024-02-05 11:56] LABS: Alanine Aminotransferase 32 U/L (0-31); Albumin Level 4.1 g/dL (3.5-5.0); Alkaline Phosphatase 40 U/L (39-117); Anion Gap 12 (12-20); Aspartate Amino Transferase 25 U/L (5-31); Bilirubin Total 0.9 mg/dL (0.0-1.0); Blood Urea Nitrogen 11 mg/dL (9-16); Carbon Dioxide 24 mmol/L (22-29); Chloride 103 mmol/L (96-108); Cholesterol 173 mg/dL (<200); Estimated Glomerular Filt Rate > 60; Glucose Random 85 mg/dL (60-115); HDL Cholesterol 58 mg/dL (>40); Iron 112 mcg/dL (30-160); LDL Cholesterol Calculated 93 mg/dL (<100); Percent Iron Saturation 29 % (15-50); Potassium 3.3 mmol/L (3.3-5.1); Sodium 136 mmol/L (135-145); Total Iron Binding Capacity 385 mcg/dL (228-428); Total Protein 7.7 g/dL (6.5-8.0); Triglycerides 110 mg/dL (<150); Unsaturated Iron Binding 273 ug/dL
[2024-02-05 12:13] LABS: TSH reflex Free T4 1.35 uIU/mL (0.32-4.0); Vitamin D 25-OH Total 103.1 ng/mL (>30)
== END 2024-02-05 08:02 | disposition home or self-care (01) ==
LOC: HO.HMGCLDS 08:01
PROVIDERS: PCP Internal Medicine; Visit Provider Internal Medicine
DX: Z00.00 Encounter for general adult medical examination without abnormal findings (principal); R79.89 Other specified abnormal findings of blood chemistry; I10 Essential (primary) hypertension
CPT/HCPCS: 36415; 80053; 80061; 82306; 83036; 83540; 84443; 85025

== ENCOUNTER 2024-02-16 07:56 | Outpatient (AMB) | payer BC, SELFPAY ==
[2024-02-16 08:32] VITALS: BP 130/74; PULSE 90; O2SAT 98; BMI 29.9
--- NOTE | 2024-02-16 08:32 | MHC.PC.OV ---
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 Accompanied by: Self / Same As Patient Allergies No Known Allergies Allergy (Verified 02/16/24 08:34) Medication List - Last Reconciled 02/16/24 by Colette Mckinnon MD amlodipine 5 mg PO DAILY buspirone 15 mg PO TID desogestrel-ethinyl estradiol 0.15-0.03 mg (Isibloom) 1 tab PO DAILY dextroamphetamine-amphetamine 10 mg 1 tab PO TID dextroamphetamine-amphetamine 20 mg ER 20 caps PO QAM escitalopram oxalate 20 mg PO DAILY lorazepam 0.5 mg PO DAILY PRN olmesartan-hydrochlorothiazide 40-25 mg 1 tab PO DAILY omeprazole 20 mg PO DAILY semaglutide (weight loss) (Wegovy) 1 mg subcut QWEEK Tobacco use date assessed: 02/16/24 Dental Screening Dental Screen Date: 02/16/24 Did you have a dental visit in the last 12 months?: Yes Did you have a dental problem in the last 6 months where you did not have access to dental care?: No Was dental information given to patient?: Patient has dentist HPI Annual PE HPI Details Patient presents for a physical. Hypertension is controlled on current medications. [facility] Medical History Distal radius fracture, right Elevated LFTs Hyperglycemia Achilles tendinitis Annual physical exam Obesity HPV test positive Depression HTN (hypertension) ADHD Surgical History History of esophagogastroduodenoscopy (EGD) Hx of colonoscopy H/O gastric bypass Family History Father HTN (hypertension) Mother HTN (hypertension) Diabetes mellitus Other Mental health disorder Social History Household Members Other:: well balanced diet, Housing: House Alcohol intake: current Alcohol intake frequency: holidays/special occasions only Patient Tobacco Use Status: Former Tobacco user e-Cigarette/Vaping Use: Never Used Second Hand Smoke Exposure: No Current occupational status: employed 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 1. Little interest or pleasure in doing things: several days 2. Feeling down, depressed, or hopeless: not at all 3. Trouble falling or staying asleep, or sleeping too much: several days 4. Feeling tired or having little energy: several days 5. Poor appetite or overeating: several days 6. Feeling bad about yourself - or that you are a failure or have let yourself or your family down: several days 7. Trouble concentrating on things, such as reading the newspaper or watching television: several days 8. Moving or speaking so slowly that other people could have noticed. Or the opposite - being so fidgety or restless that you have been moving around a lot more than usual: not at all 9. Thoughts that you would be better off or of hurting yourself in some way: not at all Total score: 6 Depression Screening Interpretation: Negative Depression Screening Done: Yes 50777 - PHQ-9 Billing: Yes Source: Developed by Drs. Neri Harris, Renee Romero, Miguel A Heml and colleagues, with an educational [place] from [employer]. Thrive Questionnaire Date Thrive assessed: 02/09/23 AUDIT C Alcohol Use Questionnaire (AUDIT-C) 1. How often do you have a drink containing alcohol?: 2-3 times a week 2. How many drinks containing alcohol do you have on a typical day when you are drinking?: 1 or 2 3. How often do you have six or more drinks on one occasion?: Never Total Score: 3 Score Reviewed/Action Taken: Yes MARIZA-7 AMB Questionnaire MARIZA-7 Date MARIZA - 7 assessed: 02/16/24 Feeling nervous, anxious, or on edge: 1 = Several days Not being able to stop or control worryin = Not at all Worrying too much about different things: 1 = Several days Trouble relaxin = Several days Being so restless that it is hard to sit still: 1 = Several days Becoming easily annoyed or irritable: 0 = Not at all Feeling afraid as if something awful might happen: 0 = Not at all Total MARIZA-7 score (0-4 normal; 5-9 mild; 10-14 moderate; 15-21 severe): 4 Source: Developed by Drs. Neri Harris, Renee Romero, Miguel A Helm and colleagues, with an educational [place] from [employer]. MARIZA-7 Assessment Billing MARIZA-7 Assessment Tool: MARIZA-7 Assessment 08251 Review of Systems Const All systems reviewed & are unremarkable except as noted in HPI and below Eyes Reports no additional complaints ENT Reports no additional complaints Resp Reports no additional complaints GI Reports no additional complaints Reports no additional complaints Physical exam (Primary Care) Vital Signs: Last Vital Signs Pulse 110 H 02/16/24 08:32 BP 130/74 02/16/24 08:32 Pulse Ox 98 02/16/24 08:32 Oxygen Delivery Method Room Air 02/16/24 08:32 BMI result Body Mass Index 29.9 Tobacco/Smoking Status: Tobacco use Status Tobacco use date assessed 02/16/24 02/16/24 08:37 Patient Tobacco Use Status Former Tobacco user 02/16/24 08:37 e-Cigarette/Vaping Use Never Used 02/16/24 08:37 PHQ-9: PHQ-9 Score PHQ-9: Total score 6 02/16/24 08:51 Depression Screening Interpretation: Negative Thrive Assessment: Date of Thrive Assessment Date Thrive assessed 02/09/23 02/16/24 08:37 Const General: no acute distress HENMT Head: Yes normal to inspection Throat: Yes posterior oropharynx normal Neck Neck: Yes supple Resp Effort & Inspection: normal respiratory effort Auscultation: clear to auscultation bilaterally Cardio Rhythm: regular rhythm Heart sounds: S1 normal heart sound present and S2 normal heart sound present GI Inspection: Yes normal to inspection Palpation (GI): Soft to palpation Percussion: Yes normal to percussion Auscultation: normal bowel sounds Assessment and Plan Assessment & Plan (1) HTN (hypertension): Code(s): I10 - Essential (primary) hypertension Plan: Continue current medications (2) Depression: Code(s): F32.9 - Major depressive disorder, single episode, unspecified Plan: Follow-up with psychiatrist and therapist (3) Hyperglycemia: Code(s): R73.9 - Hyperglycemia, unspecified Plan: ADA diet regular exercise weight loss discussed with the patient (4) Annual physical exam: Code(s): Z00.00 - Encounter for general adult medical examination without abnormal findings Plan: Well-balanced diet regular physical activity discussed with the patient she is up-to-date with the Pap smear by 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 (5) HPV test positive: Comment: pap negative 05/2019, 09/2020, s/p LEEP 09/16 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
== END 2024-02-16 09:02 | disposition home or self-care (01) ==
PROVIDERS: Visit Provider Internal Medicine
DX: Z00.00 Encounter for general adult medical examination without abnormal findings (principal); I10 Essential (primary) hypertension; F32.9 Major depressive disorder, single episode, unspecified; R73.9 Hyperglycemia, unspecified
CPT/HCPCS: 99396

== ENCOUNTER 2024-03-14 09:00 | Outpatient (RCR) | payer OTHER, BC, SELFPAY ==
--- NOTE | 2024-03-14 10:24 | MHC.OT.DC ---
[address] [phone] F: [phone] Occupational Therapy Discharge Note Patient Name: Sally Munoz Provider: Lore Bond Diagnosis: Right distal radius fracture Date of Surgery: Date of Evaluation: 01/11/24 Date of Discharge: 03/14/24 Treatments to Date: 10 Cancellations to Date: No Shows to Date: Discharge Status: Achieved Goals Improved Function Discharge Summary: Good improvement in wrist and hand AROM to WNL. Silicator strength significantly improved . Pt reports mild difficulty with daily activities due to avoiding heavy lifting and partial weight bearing on right hand . She is independent with her HEP . I anticipate continued improvement with self management . Goals met Electronically Signed By: Rosa Villavicencio OT CHT CLT Reviewed/agree with student documentation: Therapist: Please Sign and return to therapist, thank you for your referral.
== END 2024-03-21 13:45 | disposition home or self-care (01) ==
LOC: HO.OT 09:00
PROVIDERS: PCP Internal Medicine; Visit Provider Physician Assistant
DX: S62.308D Unspecified fracture of other metacarpal bone, subsequent encounter for fracture with routine healing (principal); S52.501D Unspecified fracture of the lower end of right radius, subsequent encounter for closed fracture with routine healing
CPT/HCPCS: 97110; 97166

== ENCOUNTER 2024-06-07 07:56 | Outpatient (AMB) | payer BC, SELFPAY ==
--- NOTE | 2024-06-07 08:01 | MHC.OFFVIS ---
Vital Signs 06/07/24 08:02 Height 5 ft 6 in Weight 158 lb 11.725 oz BMI 25.6 BP 110/74 Blood Pressure Location Rt brachial Position Sitting Pulse 118 H Pulse Source Pulse Oximeter Pulse Oximetry (%) 100 Oxygen Delivery Method Room Air Intake Visit Reasons: 1 Year Follow Up Intake Note: Sally presents in office today for a scheduled 1 year FUV. CC; Pt was rx'd omeprazole at their last visit. No labs were ordered. Pt denies any new concerns or sx at this time and reports that they have been stable since their last visit. Omeprazole was refilled at their last visit. 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 Avoid dietary triggers and late night snacking. Staying upright for minimum 3 hours after meals discussed with patient. Bonilla's esophagus determined by biopsy Bonilla's esophagus found on upper endoscopy in November of 2022. Will repeat upper endoscopy within a year or so. Patient can continue treatment with omeprazole every morning. Avoid dietary trigger is. Patient will call our office if she will have any issues. I will see her in 1 year, sooner on as needed basis. Patient is agreeable to this plan and verbalizes understanding of instructions. She was given the opportunity to ask questions and all questions answered. ? Thank you for allowing me to participate in her care Plan Medications Refilled omeprazole 20 mg PO DAILY 90 caps 3RF TODAY'S VISIT Patient is here today for follow-up. She continues to take omeprazole 20 mg daily and feeling well. Denies any dyspepsia, dysphagia or odynophagia. Denies any acid reflux. Patient reports that she has been feeling quite well. Patient denies any GI symptoms today. Upper endoscopy in November of 2022 biopsy showed Barretts. Patient has been taking her medication daily, has no symptoms. [facility] Medical History Distal radius fracture, right Elevated LFTs Hyperglycemia Achilles tendinitis Annual physical exam Obesity HPV test positive Depression HTN (hypertension) ADHD Surgical History (Updated 06/07/24 @ 08:07 by ANA Bone) History of esophagogastroduodenoscopy (EGD) Hx of colonoscopy H/O gastric bypass Family History Father HTN (hypertension) Mother HTN (hypertension) Diabetes mellitus Other Mental health disorder Social History Household Members Other:: well balanced diet, Housing: House Alcohol intake: current Alcohol intake frequency: holidays/special occasions only Patient Tobacco Use Status: Former Tobacco user e-Cigarette/Vaping Use: Never Used Second Hand Smoke Exposure: No Current occupational status: employed 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, 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 Cognitive needs: No Hearing needs: No Vision needs: No Review of Systems Const Denies weight gain and Denies weight loss ENT Reports no additional complaints, Denies dysphagia and Denies odynophagia Card Reports no additional complaints Resp Reports no additional complaints GI Denies abdominal pain, Denies belching, Denies melena, Denies bloating, Denies change in bowel habits, Denies dysphagia, Denies excessive flatus, Denies dyspepsia, Denies heartburn, Denies diarrhea, Denies loose stools, Denies nausea, Denies odynophagia and Denies vomiting Reports no additional complaints Musc Reports no additional complaints Neuro Reports no additional complaints Psych Reports no additional complaints Endo Reports no additional complaints Physical Exam Vital Signs: Last Vital Signs Pulse 118 H 06/07/24 08:02 BP 110/74 06/07/24 08:02 Pulse Ox 100 06/07/24 08:02 Oxygen Delivery Method Room Air 06/07/24 08:02 BMI result Body Mass Index 25.6 Const General: healthy appearing, no acute distress and well developed Nutritional Appearance: well nourished Orientation/consciousness: patient oriented x3 Resp Effort & Inspection: normal respiratory effort, able to speak in complete sentences, no tracheal deviation and symmetric chest movement Auscultation: clear to auscultation bilaterally Cardio Rate: regular rate GI Inspection: Yes normal to inspection and No distended Palpation (GI): Soft to palpation, not firm, nontender and No hepatosplenomegaly present Auscultation: normal bowel sounds General: Yes no CVA tenderness Back/Spine/Pelvis Back: no CVA tenderness Skin General skin exam: elasticity normal, turgor normal and dry skin Neuro General: patient oriented x3 Psych Appearance: grossly normal Mental Status: mental status grossly normal Assessment & Plan Assessment & Plan (1) GERD (gastroesophageal reflux disease): Code(s): K21.9 - Gastro-esophageal reflux disease without esophagitis Category: Medical Qualifiers: Esophagitis presence: esophagitis presence not specified Qualified Code(s): K21.9 - Gastro-esophageal reflux disease without esophagitis (2) 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 Avoid dietary triggers and late night snacking. Staying upright for minimal 3 hours after meals discussed with patient. Message sent to surgical schedulers to schedule upper endoscopy with WATS to sample larger area of esophagus. Patient will follow-up in the office after the procedure. Patient is agreeable to this plan and verbalizes understanding of instructions. She was given the opportunity to ask questions and all questions answered. Thank you for allowing me to participate in her care Coding Level of Care Code Est Pt Level 3 (98033) Diagnoses Gastroesophageal reflux disease, unspecified whether esophagitis present K21.9 Esophagitis presence: esophagitis presence not specified Bonilla's esophagus determined by biopsy K22.70 Time Spent (min) 25 Comment 15 minutes spent with patient and additional 10 minutes spent reviewing her records
[2024-06-07 08:02] VITALS: BP 110/74; PULSE 118; O2SAT 100; BMI 25.6
== END 2024-06-07 08:28 | disposition home or self-care (01) ==
PROVIDERS: PCP Internal Medicine; Visit Provider Nurse Practitioner Family
DX: K21.9 Gastro-esophageal reflux disease without esophagitis (principal); K22.70 Barrett's esophagus without dysplasia
CPT/HCPCS: 99213

== ENCOUNTER → 2024-06-07 07:56 | Outpatient (BNVA) | payer BC, SELFPAY | PROVIDERS: PCP Internal Medicine; Visit Provider Nurse Practitioner Family ==

== ENCOUNTER 2024-06-28 12:56 | Outpatient (AMB) | payer BC, SELFPAY ==
--- NOTE | 2024-06-28 13:01 | A.OFFPC_ITS ---
Vital Signs 06/28/24 13:02 Height 5 ft 6 in Weight 160 lb BMI 25.8 BP 110/70 Blood Pressure Location Lt brachial Position Sitting Pulse 109 H Pulse Source Pulse Oximeter Pulse Oximetry (%) 99 Oxygen Delivery Method Room Air Intake Visit Reasons: Light headed Intake Note: Pt is here today for a follow up visit. Pt states that she gets light headed sometimes when she gets up. Allergies No Known Allergies Allergy (Verified 06/28/24 13:18) Medication List - Last Reconciled 06/28/24 by Colette Mckinnon MD amlodipine 5 mg PO DAILY buspirone 15 mg PO TID desogestrel-ethinyl estradiol 0.15-0.03 mg (Isibloom) 1 tab PO DAILY dextroamphetamine-amphetamine 20 mg 1 tab PO DAILY dextroamphetamine-amphetamine 30 mg ER 1 cap PO DAILY escitalopram oxalate 20 mg PO DAILY lorazepam 0.5 mg PO DAILY PRN olmesartan 20 mg PO DAILY omeprazole 20 mg PO DAILY ondansetron HCl 4 mg PO Q8H PRN semaglutide (weight loss) (Wegovy) 1 mg subcut QWEEK Tobacco use date assessed: 06/28/24 Dental Screening Dental Screen Date: 02/16/24 HPI Light headed HPI Details Patient reports episodes of lightheadedness when standing up quickly. She lost another 15 lb since last visit on [facility]. Patient has been maintaining good fluid intake but reports low blood pressure readings at home. [facility] Medical History Distal radius fracture, right Elevated LFTs Hyperglycemia Achilles tendinitis Annual physical exam Obesity HPV test positive Depression HTN (hypertension) ADHD Surgical History (Updated 06/07/24 @ 08:07 by ANA Bone) History of esophagogastroduodenoscopy (EGD) Hx of colonoscopy H/O gastric bypass Family History Father HTN (hypertension) Mother HTN (hypertension) Diabetes mellitus Other Mental health disorder Social History Household Members Other:: well balanced diet, Housing: House Alcohol intake: current Alcohol intake frequency: holidays/special occasions only Patient Tobacco Use Status: Former Tobacco user e-Cigarette/Vaping Use: Never Used Second Hand Smoke Exposure: No service: No Current occupational status: employed 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 1. Little interest or pleasure in doing things: not at all 2. Feeling down, depressed, or hopeless: not at all 3. Trouble falling or staying asleep, or sleeping too much: several days 4. Feeling tired or having little energy: several days 5. Poor appetite or overeating: not at all 6. Feeling bad about yourself - or that you are a failure or have let yourself or your family down: not at all 7. Trouble concentrating on things, such as reading the newspaper or watching television: not at all 8. Moving or speaking so slowly that other people could have noticed. Or the opposite - being so fidgety or restless that you have been moving around a lot more than usual: not at all 9. Thoughts that you would be better off or of hurting yourself in some way: not at all Total score: 2 Depression Screening Interpretation: Negative Depression Screening Done: Yes 52733 - PHQ-9 Billing: Yes Source: Developed by Drs. Neri Harris, Renee Romero, Miguel A Helm and colleagues, with an educational [place] from [employer]. Thrive Questionnaire Date Thrive assessed: 06/27/24 I am a: Patient What is your living situation today?: I have a steady place to live Within the past 12 months, did the food you bought not last and you didn't have the money to get more?: Never true Within the past 12 months, did you worry whether your food would run out before you got money to buy more?: Never true Do you have trouble paying for medicines?: No Do you have trouble getting transportation to medical appointments?: No Do you have trouble paying your heating and electricity bill?: No Do you have trouble taking care of your child, family member or friend?: No Do you have trouble with day-to-day activities such as bathing, preparing meals, shopping, managing finances, etc.?: No Are you currently unemployed and looking for a job?: No Are you interested in more education?: No Please select the resources that you would like help with: None Currently or been in a relationship where the following occur: No concerns reported THRIVE Score: 0 AUDIT C Alcohol Use Questionnaire (AUDIT-C) 1. How often do you have a drink containing alcohol?: 2-4 times a month 2. How many drinks containing alcohol do you have on a typical day when you are drinking?: 1 or 2 3. How often do you have six or more drinks on one occasion?: Less than monthly Total Score: 3 MARIZA-7 AMB Questionnaire MARIZA-7 Date MARIZA - 7 assessed: 02/16/24 Feeling nervous, anxious, or on edge: 1 = Several days Not being able to stop or control worryin = Several days Worrying too much about different things: 0 = Not at all Trouble relaxin = Not at all Being so restless that it is hard to sit still: 0 = Not at all Becoming easily annoyed or irritable: 1 = Several days Feeling afraid as if something awful might happen: 0 = Not at all Total MARIZA-7 score (0-4 normal; 5-9 mild; 10-14 moderate; 15-21 severe): 3 Source: Developed by Drs. Neri Harris, Renee Romero, Miguel A Helm and colleagues, with an educational [place] from [employer]. Review of Systems Const All systems reviewed & are unremarkable except as noted in HPI and below Eyes Reports no additional complaints Card Reports no additional complaints Resp Reports excessive phlegm production GI Reports no additional complaints Reports no additional complaints Physical exam (Primary Care) Vital Signs: Last Vital Signs Pulse 109 H 06/28/24 13:02 BP 130/82 06/28/24 13:02 Pulse Ox 99 06/28/24 13:02 Oxygen Delivery Method Room Air 06/28/24 13:02 BMI result Body Mass Index 25.8 Tobacco/Smoking Status: Tobacco use Status Tobacco use date assessed 06/28/24 06/28/24 13:19 Patient Tobacco Use Status Former Tobacco user 06/28/24 13:03 e-Cigarette/Vaping Use Never Used 06/28/24 13:03 PHQ-9: PHQ-9 Score PHQ-9: Total score 2 06/28/24 14:09 Depression Screening Interpretation: Negative Thrive Assessment: Date of Thrive Assessment Date Thrive assessed 06/27/24 06/28/24 13:03 Currently or been in a relationship where the following occur: No concerns reported Const General: no acute distress HENMT Ears: hearing grossly normal bilaterally Eyes General: appearance normal, both eyes and all related structures Resp Effort & Inspection: normal respiratory effort Auscultation: clear to auscultation bilaterally Cardio Rhythm: regular rhythm Heart sounds: S1 normal heart sound present and S2 normal heart sound present GI Inspection: Yes normal to inspection Palpation (GI): Soft to palpation Assessment and Plan Assessment & Plan (1) HTN (hypertension): Code(s): I10 - Essential (primary) hypertension Plan: Blood pressure is low and patient is symptomatic. Olmesartan 40/25 will be changed to 20 mg of olmesartan and patient will continue amlodipine. She will return in 2 months for blood pressure check. Patient heart rate is persistently elevated and patient has been taking Adderall. If the heart rate remains high adding a low-dose of beta-glenroy will be considered Orders: Orders TSH reflex Free T4 2 Months I10 - Essential (primary) hypertension Comprehensive [place]. Panel Fast 2 Months I10 - Essential (primary) hypertension Complete Blood Count Auto Diff 2 Months I10 - Essential (primary) hypertension IRON PROFILE 2 Months I10 - Essential (primary) hypertension Medications: New olmesartan 20 mg PO DAILY 30 tabs 1RF Discontinued olmesartan-hydrochlorothiazide 40-25 mg Discontinued Reason: Doctor's Order 1 tab PO DAILY 90 tabs 3RF Coding Level of Care Code Est Pt Level 3 (70442) Diagnoses HTN (hypertension) I10
[2024-06-28 13:02] VITALS: BP 110/70; PULSE 109; O2SAT 99; BMI 25.8
== END 2024-06-28 15:26 | disposition home or self-care (01) ==
PROVIDERS: PCP Internal Medicine; Visit Provider Internal Medicine
DX: I10 Essential (primary) hypertension (principal)
CPT/HCPCS: 99213

== ENCOUNTER 2024-08-22 10:52 | Outpatient (REF) | payer BC, SELFPAY ==
[2024-08-22 13:23] LABS: MANUAL DIFF FLAG NO
[2024-08-22 13:45] LABS: Basophils Percent Auto 0.4 % (0-2); Eosinophils Absolute Auto 0.2 X10*3/uL (0.0-0.4); Hematocrit 38.2 % (37.0-47.0); Hemoglobin 12.8 g/dl (12.0-16.0); Imm Gran Abs Auto 0.02 X10*3/uL (0.00-0.03); Imm Gran Pct Auto 0.3 % (0.0-0.4); Lymphocytes Absolute Auto 1.4 X10*3/uL (1.2-4.9); Lymphocytes Percent Auto 19.6 % (20-40); Mean Corpuscular HGB Conc 33.5 g/dl (31.0-35.0); Mean Corpuscular Hemoglobin 31.4 pg (27.0-33.0); Mean Corpuscular Volume 93.6 fL (80.0-98.0); Mean Platelet Volume 9.6 fL (9.4-12.3); Monocytes Absolute Auto 0.6 X10*3/uL (0.1-1.2); Monocytes Percent Auto 7.6 % (2-11); Neutrophils Absolute Auto 5.1 x10*3/uL (2.0-8.3); Neutrophils Percent Auto 70.1 % (45-73); Platelet Count 321 X10*3/uL (160-400); Red Blood Count 4.08 X10*6/uL (4.20-5.50); Red Cell Distribution Width 12.1 % (11.0-16.0); White Blood Count 7.3 X10*3/uL (4.8-10.8)
[2024-08-22 14:07] LABS: Alanine Aminotransferase 40 U/L (0-31); Albumin Level 4.1 g/dL (3.5-5.0); Alkaline Phosphatase 55 U/L (39-117); Anion Gap 12 (12-20); Aspartate Amino Transferase 32 U/L (5-31); Blood Urea Nitrogen 10 mg/dL (9-16); Calcium 9.7 mg/dL (8.4-10.2); Carbon Dioxide 25 mmol/L (22-29); Chloride 107 mmol/L (96-108); Estimated Glomerular Filt Rate > 60; Glucose Fasting 100 mg/dL (60-99); Iron 222 mcg/dL (30-160); Percent Iron Saturation 66 % (15-50); Potassium 4.1 mmol/L (3.3-5.1); Sodium 140 mmol/L (135-145); Total Iron Binding Capacity 337 mcg/dL (228-428); Total Protein 7.2 g/dL (6.5-8.0); Unsaturated Iron Binding 115 ug/dL
[2024-08-22 14:27] LABS: TSH reflex Free T4 1.15 uIU/mL (0.32-4.0)
== END 2024-08-22 10:53 | disposition home or self-care (01) ==
LOC: HO.HMGCLDS 10:52
PROVIDERS: PCP Internal Medicine; Visit Provider Internal Medicine
DX: I10 Essential (primary) hypertension (principal)
CPT/HCPCS: 36415; 80053; 83540; 84443; 85025

== ENCOUNTER 2024-08-23 09:22 | Outpatient (AMB) | payer BC, SELFPAY ==
[2024-08-23 09:24] VITALS: BP 128/82; PULSE 94; O2SAT 100; BMI 24.9
--- NOTE | 2024-08-23 09:24 | A.OFFPC_ITS ---
Vital Signs 08/23/24 09:24 Height 5 ft 6 in Weight 154 lb BMI 24.9 BP 128/82 Blood Pressure Location Lt brachial Position Sitting Pulse 94 Pulse Source Pulse Oximeter Pulse Oximetry (%) 100 Oxygen Delivery Method Room Air Intake Visit Reasons: 6M F/U Intake Note: Pt is here today for a follow up visit. Allergies No Known Allergies Allergy (Verified 08/23/24 09:26) Medication List - Last Reconciled 08/23/24 by Colette Mckinnon MD amlodipine 5 mg PO DAILY buspirone 15 mg PO TID dextroamphetamine-amphetamine 20 mg ER 1 cap PO QAM dextroamphetamine-amphetamine 30 mg ER 30 mg PO DAILY escitalopram oxalate 20 mg PO DAILY lorazepam 0.5 mg PO DAILY PRN norethindrone (contraceptive) (Kristin) 0.35 mg PO DAILY olmesartan 20 mg PO DAILY omeprazole 20 mg PO DAILY ondansetron HCl 4 mg PO Q8H PRN semaglutide (weight loss) (Wegovy) 1 mg subcut QWEEK Tobacco use date assessed: 06/28/24 Dental Screening Dental Screen Date: 02/16/24 HPI 6M F/U HPI Details Patient presents for the follow-up on hypertension controlled on current medications. She is established with counselor and psychiatric prescriber for chronic anxiety depression and ADHD. Patient has been cutting down on Adderall dose. She has been on semaglutide for weight loss,she has been getting from the [facility]. She lost 30 lb since January. [facility] Medical History (Updated 08/23/24 @ 12:37 by Colette Mckinnon MD) Distal radius fracture, right Elevated LFTs Hyperglycemia Achilles tendinitis Annual physical exam Obesity HPV test positive Depression HTN (hypertension) ADHD Surgical History History of esophagogastroduodenoscopy (EGD) Hx of colonoscopy H/O gastric bypass Family History Father HTN (hypertension) Mother HTN (hypertension) Diabetes mellitus Other Mental health disorder Social History Household Members Other:: well balanced diet, Housing: House Alcohol intake: current Alcohol intake frequency: holidays/special occasions only Patient Tobacco Use Status: Former Tobacco user e-Cigarette/Vaping Use: Never Used Second Hand Smoke Exposure: No service: No Current occupational status: employed 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, 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 Cognitive needs: No Hearing needs: No Vision needs: No Questionnaire Thrive Questionnaire Date Thrive assessed: 06/27/24 I am a: Patient What is your living situation today?: I have a steady place to live Within the past 12 months, did the food you bought not last and you didn't have the money to get more?: Never true Within the past 12 months, did you worry whether your food would run out before you got money to buy more?: Never true Do you have trouble paying for medicines?: No Do you have trouble getting transportation to medical appointments?: No Do you have trouble paying your heating and electricity bill?: No Do you have trouble taking care of your child, family member or friend?: No Do you have trouble with day-to-day activities such as bathing, preparing meals, shopping, managing finances, etc.?: No Are you currently unemployed and looking for a job?: No Are you interested in more education?: No Please select the resources that you would like help with: None Currently or been in a relationship where the following occur: No concerns reported THRIVE Score: 0 MARIZA-7 AMB Questionnaire MARIZA-7 Date MARIZA - 7 assessed: 02/16/24 Source: Developed by Drs. Neri Harris, Renee Romero, Miguel A Helm and colleagues, with an educational [place] from [employer] Review of Systems Const All systems reviewed & are unremarkable except as noted in HPI and below Eyes Reports no additional complaints Card Reports no additional complaints Resp Reports no additional complaints GI Reports no additional complaints Physical exam (Primary Care) Vital Signs: Last Vital Signs Pulse 94 08/23/24 09:24 BP 128/82 08/23/24 09:24 Pulse Ox 100 08/23/24 09:24 Oxygen Delivery Method Room Air 08/23/24 09:24 BMI result Body Mass Index 24.9 Tobacco/Smoking Status: Tobacco use Status Tobacco use date assessed 06/28/24 08/23/24 09:35 Patient Tobacco Use Status Former Tobacco user 08/23/24 09:35 e-Cigarette/Vaping Use Never Used 08/23/24 09:35 Thrive Assessment: Date of Thrive Assessment Date Thrive assessed 06/27/24 08/23/24 09:35 Currently or been in a relationship where the following occur: No concerns reported Const General: no acute distress HENMT Head: Yes normal to inspection Eyes General: appearance normal, both eyes and all related structures Resp Effort & Inspection: normal respiratory effort Auscultation: clear to auscultation bilaterally Cardio Rhythm: regular rhythm Heart sounds: S1 normal heart sound present and S2 normal heart sound present GI Inspection: Yes normal to inspection Coding Level of Care Code Est Pt Level 4 (82281) Diagnoses Depression F32.9 HTN (hypertension) I10 Hyperglycemia R73.9 Obesity E66.9 Assessment & Plan Assessment & Plan (1) Depression: Code(s): F32.9 - Major depressive disorder, single episode, unspecified Category: Medical Plan: Continue current medications follow-up with a psychiatrist (2) HTN (hypertension): Code(s): I10 - Essential (primary) hypertension Category: Medical Plan: Continue current medications increase physical activity discussed with the patient (3) Hyperglycemia: Code(s): R73.9 - Hyperglycemia, unspecified Category: Medical Plan: Continue ADA diet return for physical in January with a fasting labs before (4) Obesity: Comment: Lost 30 lb from January 2024 till July 2024, on semaglutide Code(s): E66.9 - Obesity, unspecified Category: Medical Plan: Continue well-balanced diet regular physical activity to maintain healthy weight Orders: Orders TSH reflex Free T4 6 Months I10 - Essential (primary) hypertension, R73.9 - Hyperglycemia, unspecified, Z00.00 - Encounter for general adult medical examination without abnormal findings Comprehensive [place]. Panel Fast 6 Months I10 - Essential (primary) hypertension, R73.9 - Hyperglycemia, unspecified, Z00.00 - Encounter for general adult medical examination without abnormal findings Complete Blood Count Auto Diff 6 Months I10 - Essential (primary) hypertension, R73.9 - Hyperglycemia, unspecified, Z00.00 - Encounter for general adult medical examination without abnormal findings Lipid Panel 6 Months I10 - Essential (primary) hypertension, R73.9 - Hyperglycemia, unspecified, Z00.00 - Encounter for general adult medical examination without abnormal findings Hemoglobin A1c 6 Months R73.9 - Hyperglycemia, unspecified
== END 2024-08-23 12:15 | disposition home or self-care (01) ==
LOC: HO.HMCC 09:23
PROVIDERS: PCP Internal Medicine; Visit Provider Internal Medicine
DX: I10 Essential (primary) hypertension (principal); F32.9 Major depressive disorder, single episode, unspecified; E66.9 Obesity, unspecified; Z68.24 Body mass index [BMI] 24.0-24.9, adult; R73.9 Hyperglycemia, unspecified

== ENCOUNTER → 2024-08-23 09:22 | Outpatient (BNVA) | payer BC, SELFPAY | PROVIDERS: PCP Internal Medicine; Visit Provider Internal Medicine ==

== ENCOUNTER 2024-10-10 08:27 | Day surgery (SDC) | payer BC, SELFPAY ==
[2024-10-06 14:32] VITALS: BMI 25.5
--- NOTE | 2024-10-09 10:08 | HO.ANESPROP2 ---
Documented by User: Kristin Suarez NP 10/09/24 10:08 HPI - Anesthesia Eval Consult details Narrative: 39yo F for Upper Endoscopy [place] Anesthesia Pre-Procedure Meds Is the patient on any of the following meds?: GLP1/DPP4 PMFSH Active Problems Active Problems: All Active Problems Obesity (Acute) Tachycardia (Acute) GERD (gastroesophageal reflux disease) (Acute) Sinusitis (Acute) Elevated LFTs (Acute) HPV test positive (Acute) Hyperglycemia (Acute) Depression (Acute) Achilles tendinitis (Acute) HTN (hypertension) (Acute) Annual physical exam (Acute) Past Medical History Medical History Distal radius fracture, right Elevated LFTs Hyperglycemia Achilles tendinitis Annual physical exam Obesity HPV test positive Depression HTN (hypertension) ADHD Family History Family History Father HTN (hypertension) Mother HTN (hypertension) Diabetes mellitus Other Mental health disorder Family history of problems with anesthesia: No Surgical History Surgical History History of esophagogastroduodenoscopy (EGD) Hx of colonoscopy H/O gastric bypass History of Problems with Anesthesia: No Social History Social History Household Members Other:: well balanced diet, Housing: House Alcohol intake: current Alcohol intake frequency: does not drink Patient Tobacco Use Status: Former Tobacco user e-Cigarette/Vaping Use: Never Used Second Hand Smoke Exposure: No Have you been hit, kicked, punched, or otherwise hurt by someone within the past year? 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 Cognitive needs: No Hearing needs: No Vision needs: No Meds Allergies Allergy/AdvReac Type Severity Reaction Status Date / Time No Known Allergies Allergy Verified 08/23/24 09:26 Home Medications ?Medication ?Instructions ?Recorded ?Confirmed ?Last Taken ?Type buspirone 15 mg tablet 15 mg PO TID 10/03/20 10/10/24 10/10/24 History lorazepam 0.5 mg tablet 0.5 mg PO DAILY PRN Anxiety 10/03/20 10/10/24 10/02/24 History escitalopram oxalate 20 mg tablet 20 mg PO DAILY 02/09/23 10/10/24 10/10/24 History semaglutide (weight loss) 1 mg/0.5 1 mg subcut QWEEK 02/16/24 10/10/24 10/02/24 History mL subcutaneous pen injector (Jovany) dextroamphetamine-amphetamine ER 1 cap PO QAM 08/23/24 10/10/24 10/10/24 History 20 mg 24hr capsule,extend release norethindrone (contraceptive) 0.35 0.35 mg PO DAILY 08/23/24 10/10/24 10/10/24 History mg tablet (Kristin) Exam Height,Weight and Vital Signs: Height 5 ft 6 in Weight 71.668 kg Assessment and Plan Assessment Anesthesia Assessment: Chart Reviewed Final Anesthetic Review Family History of Problems with Anesthesia: No History of Problems with Anesthesia: No Documented by User: Lauryn Wells MD 10/10/24 10:41 HPI - Anesthesia Eval Anesthesia Pre-Procedure Meds Is the patient on any of the following meds?: GLP1/DPP4 (Last dose of semaglutide 10/02/24) If yes to any meds - educate patient: Pt education - increased risk of aspiration and/or euvolemic DKA PMFSH Past Medical History Medical History Distal radius fracture, right Elevated LFTs Hyperglycemia Achilles tendinitis Annual physical exam Obesity HPV test positive Depression HTN (hypertension) ADHD Family History Family History Father HTN (hypertension) Mother HTN (hypertension) Diabetes mellitus Other Mental health disorder Family history of problems with anesthesia: No Surgical History Surgical History History of esophagogastroduodenoscopy (EGD) Hx of colonoscopy H/O gastric bypass History of Problems with Anesthesia: No Social History Social History Household Members Other:: well balanced diet, Housing: House Alcohol intake: current Alcohol intake frequency: does not drink Patient Tobacco Use Status: Former Tobacco user e-Cigarette/Vaping Use: Never Used Second Hand Smoke Exposure: No Have you been hit, kicked, punched, or otherwise hurt by someone within the past year? 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 Cognitive needs: No Hearing needs: No Vision needs: No Meds Allergies Allergy/AdvReac Type Severity Reaction Status Date / Time No Known Allergies Allergy Verified 08/23/24 09:26 Home Medications ?Medication ?Instructions ?Recorded ?Confirmed ?Last Taken ?Type buspirone 15 mg tablet 15 mg PO TID 10/03/20 10/10/24 10/10/24 History lorazepam 0.5 mg tablet 0.5 mg PO DAILY PRN Anxiety 10/03/20 10/10/24 10/02/24 History escitalopram oxalate 20 mg tablet 20 mg PO DAILY 02/09/23 10/10/24 10/10/24 History semaglutide (weight loss) 1 mg/0.5 1 mg subcut QWEEK 02/16/24 10/10/24 10/02/24 History mL subcutaneous pen injector (Wegovy) dextroamphetamine-amphetamine ER 1 cap PO QAM 08/23/24 10/10/24 10/10/24 History 20 mg 24hr capsule,extend release norethindrone (contraceptive) 0.35 0.35 mg PO DAILY 08/23/24 10/10/24 10/10/24 History mg tablet (Kristin) Exam Height,Weight and Vital Signs: Height 5 ft 6 in Weight 71.668 kg Vital Signs Temp Pulse Resp BP Pulse Ox O2 Del Method 10/10/24 09:07 97.5 F 91 20 110/61 97 Room Air Pertinent Lab Results Pertinent Lab Results: Lab Results 10/10/24 Range/Units 08:45 Urine Test NEGATIVE (NEGATIVE) Airway Mallampati Class: II TM Dist: >3cm Neck ROM: Full Loose/Missing/Broken Teeth: Yes (Top mostly crowns. 1 top front crown loose. Denies broken or missing teeth) Heart: RRR Lungs: CTAB Assessment and Plan Assessment Anesthesia Assessment: Anesthesia Plan Discussed and Chart Reviewed Final Anesthetic Review Family History of Problems with Anesthesia: No History of Problems with Anesthesia: No NPO: Yes ASA Class: II Final Preanesthetic Review: No Changes in Pt Med Stat, Meds/Allgs Chart Reviewed, Consent Obtained/Reviewed and Anes Risks/Benef Reviewed Patient Risk: Intermediate Procedure Risk: Low Assessment/Block/Sedation in SS: Assess/Block/Sedation-SS Anesthetic Plan Anesthetic Plan: TIVA Disposition: Standard PACU
[2024-10-10 09:07] VITALS: BP 110/61; PULSE 91; RESP 20; TEMP 36.4; O2SAT 97; BMI 25.7
[2024-10-10 09:10] LABS: UPreg QC Valid YES; Urine Pregnancy NEGATIVE (NEGATIVE)
[2024-10-10] MEDS: Lactated Ringers 1,000 ML 100 ML IVCONT (09:28)
--- NOTE | 2024-10-10 10:31 | P.HPSUR_ITS ---
Pre-Procedural Eval Section A - 24 Hr Update-Section A only Date of Service: 10/10/24 Section B - Complete if H&P > 30 days Chief Complaint: Gastro-esophageal reflux disease without esophagit Relevant Family History (Specify if Yes): No Relevant Social History: None Present Medications: see Short Stay Collaborative assessment Medical History: Significant History (Distal radius fracture, right Elevated LFTs Hyperglycemia Achilles tendinitis Annual physical exam Obesity HPV test positive Depression HTN (hypertension) ADHD) History of Previous Operations: Relevant previous surgery/procedure and date(s) (History of esophagogastroduodenoscopy (EGD) Hx of colonoscopy H/O gastric bypass) Allergies: Allergies Allergy/AdvReac Type Severity Reaction Status Date / Time No Known Allergies Allergy Verified 08/23/24 09:26 Review of Systems Sugical H&P ROS: Negative: Constitution, Cardiovascular, Respiratory, Neurological, Psychiatric, Hem-Onc, Allergic/Immunologic, Gastrointestinal, Genitourinary, Musculoskeletal, Integumentary, Endocrine and Eyes/Ears/N ose/Throat Exam Surgical H&P Exam: Normal: HEENT, Normal: Heart, Normal: Lungs, Normal: Extremities, Normal: Abdomen, Normal: Skin and Normal: Neurological Plan Diagnosis/Plan: Unchanged I have reviewed the history and physical and performed a pertinent physical examination on my patient. No changes have occurred unless specified. Time Spent With Patient Time: Total time managing care of this patient today ____ minutes.
--- NOTE | 2024-10-10 10:54 | W.PM.OPN ---
Operative Note Operative Note Date of Service: 10/10/24 Narrative: Procedure Description: EGD Indication: Barretts esophagus Anesthesia: MAC FLEXIBLE TRANSORAL UPPER GASTROINTESTINAL ENDOSCOPY UPPER ENDOSCOPY Consent: Indications for the procedure and potential complications of bleeding, perforation, reaction to medications and missed diagnosis were discussed with the patient and informed consent was obtained. Instrument: Olympus GIF H 190 J mid size upper endoscope Monitoring: Vital signs and clinical assessment, continuous EKG monitoring, Pulse oximetry, Carbon Dioxide monitoring and blood pressure monitoring were done throughout the procedure. Procedure: The patient was placed in the left lateral decubitis position and pre-procedure medications were administered and a bite block was placed. The endoscope was inserted into the mouth and advanced under direct vision to the jejunum. A careful inspection was made as the upper endoscope was withdrawn including a retroflexed examination of the proximal stomach; Findings and interventions are described below. HX of gastric bypass 2013 Findings: Larynx:normal Esophagus: GE junction at 35 cm, diaphragm hiatus at 38 cm, consistent with 3 cm hiatal hernia, patchy salmon pink tissue noted at GEJ with one possible short segment of barretts mucosa, bx taken from GEJ, along with brushings fro WATS. Small inlet patches seen proximal esophagus Stomach pouch: Normal. Grade 3 flap valve on retroflexed examination of the cardia. jejunum: Normal, Intervention: Biopsies as noted above, brushings Impression/Findings: hiatal hernia inlet patch suspected barretts esophagus PLAN: continue with PPi as it is working repeat EGD in 5 yrs or earlier if clinically indicated GERD precautions,.
[2024-10-10 11:00] VITALS: BP 102/51; PULSE 80; RESP 17; TEMP 36.6; O2SAT 98
[2024-10-10 11:14] VITALS: BP 110/61; PULSE 87; RESP 17; TEMP 36.6; O2SAT 98
== END 2024-10-10 11:41 | disposition home or self-care (01) ==
PROVIDERS: Nurse Practitioner; PCP Internal Medicine; Visit Provider Internal Medicine Gastroenterology
PROC: 0DJ08ZZ Inspection of Upper Intestinal Tract, Via Natural or Artificial Opening Endoscopic (ICD-10-PCS; CPT 43235; principal; 2024-10-10 10:50)
DX: K22.70 Barrett's esophagus without dysplasia (principal); K44.9 Diaphragmatic hernia without obstruction or gangrene; K21.9 Gastro-esophageal reflux disease without esophagitis; Z98.84 Bariatric surgery status; I10 Essential (primary) hypertension; Z87.891 Personal history of nicotine dependence; Z79.899 Other long term (current) drug therapy
CPT/HCPCS: 43239; 81025; 88305; J2003; J2704

== ENCOUNTER → 2024-10-10 08:27 | Outpatient (BNV) | payer BC, SELFPAY | PROVIDERS: PCP Internal Medicine; Visit Provider Internal Medicine Gastroenterology | DX: K22.70 Barrett's esophagus without dysplasia (principal) | CPT/HCPCS: 43239 ==

== ENCOUNTER 2024-11-13 15:55 | Outpatient (AMB) | payer BC, SELFPAY ==
[2024-11-13 16:00] VITALS: BP 120/80; PULSE 76; O2SAT 100; BMI 23.2
--- NOTE | 2024-11-13 16:00 | A.OFFVIS_ITS ---
Vital Signs 11/13/24 16:00 Height 5 ft 6 in Weight 144 lb BMI 23.2 BP 120/80 Blood Pressure Location Rt brachial Position Sitting Pulse 76 Pulse Source Pulse Oximeter Pulse Oximetry (%) 100 Oxygen Delivery Method Room Air Intake Visit Reasons: s/p FUV discuss tissue cypher Intake Note: ESTABLISHED PATIENT Reason; scheduled in office s/p FUV egd TH. Tissue cypher results Changes/concerns? No significant GI concerns per pt. 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 Avoid dietary triggers and late night snacking. Staying upright for minimal 3 hours after meals discussed with patient. Message sent to surgical schedulers to schedule upper endoscopy with WATS to sample larger area of esophagus. Patient will follow-up in the office after the procedure. Patient is agreeable to this plan and verbalizes understanding of instructions. She was given the opportunity to ask questions and all questions answered. UPPER ENDOSCOPY Findings: Larynx:normal Esophagus: GE junction at 35 cm, diaphragm hiatus at 38 cm, consistent with 3 cm hiatal hernia, patchy salmon pink tissue noted at GEJ with one possible short segment of barretts mucosa, bx taken from GEJ, along with brushings fro WATS. Small inlet patches seen proximal esophagus Stomach pouch: Normal. Grade 3 flap valve on retroflexed examination of the cardia. jejunum: Normal, Intervention: Biopsies as noted above, brushings Impression/Findings: hiatal hernia inlet patch suspected barretts esophagus PLAN: continue with PPi as it is working repeat EGD in 5 yrs or earlier if clinically indicated GERD precautions,. PATHOLOGY RESULTS TissueCypher: Risk class Low; risk score 1.7 See report in its entirety in the EMR - Reports/Pathology section as a scanned report (camera icon). If appropriate, a copy has also been sent to the ordering provider's office. Electronically Signed By: Jay Jay Díaz MD 10/26/24 1316 Diagnosis GE junction, biopsy: - Bonilla esophagus with background moderate chronic inactive inflammation. - No dysplasia seen. - Squamous mucosa within normal limits. Comment: TissueCypher results will be addended TODAY'S VISIT Patient is here today for follow-up and to discuss upper endoscopy biopsy results. Patient denies any ill effects from anesthesia or procedure itself. Patient reports that she is taking omeprazole daily and her symptoms of acid reflux are suppressed. Biopsy shows tissue Cypher low risk with score 1.7. Low risk for progression of Barretts or developing HGD or EAC. Patient denies any dyspepsia, dysphagia or odynophagia. Patient has been on Wegovy for a long time and reports that she has been feeling well. Denies any abdominal pain or dis comfort. Patient is eating smaller meals. Definitely reports suppression of her appetite. Patient is worried that when she will be asked to stop she might go back to gaining weight again. Patient will speak with her PCP to see if she can be kept on low-dose as a maintenance dose. Patient will be due to go for colonoscopy when she turns 44. Patient denies any family history of CRC. Denies melena, hematochezia, unintentional weight loss or ribbon like stools. [facility] Medical History (Updated 11/13/24 @ 19:38 by Anitha Huff, [facility]) GERD (gastroesophageal reflux disease) Distal radius fracture, right Elevated LFTs Hyperglycemia Achilles tendinitis Annual physical exam Obesity HPV test positive Depression HTN (hypertension) ADHD Surgical History History of esophagogastroduodenoscopy (EGD) Hx of colonoscopy H/O gastric bypass Family History Father HTN (hypertension) Mother HTN (hypertension) Diabetes mellitus Other Mental health disorder Social History Household Members Other:: well balanced diet, Housing: House Alcohol intake: current Alcohol intake frequency: does not drink Patient Tobacco Use Status: Former Tobacco user e-Cigarette/Vaping Use: Never Used Second Hand Smoke Exposure: No service: No Current occupational status: employed 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, 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 Cognitive needs: No Hearing needs: No Vision needs: No Review of Systems Const Denies weight gain and Denies weight loss ENT Reports no additional complaints, Denies dysphagia and Denies odynophagia Card Reports no additional complaints Resp Reports no additional complaints GI Denies abdominal pain, Denies belching, Denies melena, Denies bloating, Denies change in bowel habits, Denies dysphagia, Denies excessive flatus, Denies dyspepsia, Denies heartburn, Denies diarrhea, Denies loose stools, Denies nausea, Denies odynophagia and Denies vomiting Musc Reports no additional complaints Neuro Reports no additional complaints Psych Reports no additional complaints Endo Reports no additional complaints Physical Exam Vital Signs: Last Vital Signs Pulse 76 11/13/24 16:00 BP 120/80 11/13/24 16:00 Pulse Ox 100 11/13/24 16:00 Oxygen Delivery Method Room Air 11/13/24 16:00 BMI result Body Mass Index 23.2 Const General: healthy appearing, no acute distress and well developed Nutritional Appearance: well nourished Orientation/consciousness: patient oriented x3 Resp Effort & Inspection: normal respiratory effort, able to speak in complete sentences, no tracheal deviation and symmetric chest movement Auscultation: clear to auscultation bilaterally Cardio Rate: regular rate GI Inspection: Yes normal to inspection and No distended Palpation (GI): Soft to palpation, not firm, nontender and No hepatosplenomegaly present Auscultation: normal bowel sounds General: Yes no CVA tenderness Back/Spine/Pelvis Back: no CVA tenderness Skin General skin exam: elasticity normal, turgor normal and dry skin Neuro General: patient oriented x3 Psych Appearance: grossly normal Mental Status: mental status grossly normal Assessment & Plan Assessment & Plan (1) GERD (gastroesophageal reflux disease): Code(s): K21.9 - Gastro-esophageal reflux disease without esophagitis Category: Medical Qualifiers: Esophagitis presence: esophagitis presence not specified Qualified Code(s): K21.9 - Gastro-esophageal reflux disease without esophagitis (2) 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 Avoid dietary triggers and late night snacking. Stay upright for minimum 3 hours after meals discussed with patient. Follow-up in 1 year, sooner on as needed basis. She is agreeable to this plan and verbalizes understanding of instructions. She was given the opportunity to ask questions and all questions answered. 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
== END 2024-11-13 16:32 | disposition home or self-care (01) ==
PROVIDERS: PCP Internal Medicine; Visit Provider Nurse Practitioner Family
DX: K21.9 Gastro-esophageal reflux disease without esophagitis (principal); K22.70 Barrett's esophagus without dysplasia
CPT/HCPCS: 99213

== ENCOUNTER 2025-02-16 06:07 | Outpatient (REF) | payer BC, SELFPAY ==
[2025-02-16 10:03] LABS: MANUAL DIFF FLAG NO
[2025-02-16 10:15] LABS: Basophils Percent Auto 0.4 % (0-2); Eosinophils Absolute Auto 0.3 X10*3/uL (0.0-0.4); Eosinophils Percent Auto 6.3 % (0-4); Hematocrit 38.4 % (37.0-47.0); Hemoglobin 13.2 g/dl (12.0-16.0); Imm Gran Abs Auto 0.01 X10*3/uL (0.00-0.03); Imm Gran Pct Auto 0.2 % (0.0-0.4); Lymphocytes Absolute Auto 1.6 X10*3/uL (1.2-4.9); Lymphocytes Percent Auto 34.5 % (20-40); Mean Corpuscular HGB Conc 34.4 g/dl (31.0-35.0); Mean Corpuscular Hemoglobin 31.5 pg (27.0-33.0); Mean Corpuscular Volume 91.6 fL (80.0-98.0); Mean Platelet Volume 9.3 fL (9.4-12.3); Monocytes Absolute Auto 0.3 X10*3/uL (0.1-1.2); Monocytes Percent Auto 6.7 % (2-11); Neutrophils Absolute Auto 2.5 x10*3/uL (2.0-8.3); Neutrophils Percent Auto 51.9 % (45-73); Platelet Count 291 X10*3/uL (160-400); Red Blood Count 4.19 X10*6/uL (4.20-5.50); Red Cell Distribution Width 12.4 % (11.0-16.0); White Blood Count 4.8 X10*3/uL (4.8-10.8)
[2025-02-16 10:29] LABS: Estimated Average Glucose 85 mg/dL; Hemoglobin A1C 94.7155 umol/L; Hemoglobin A1c % 4.6 % (<6.0); Total Hemoglobin (HGBA1C) 3541.2335 umol/L
[2025-02-16 10:45] LABS: Alanine Aminotransferase 30 U/L (0-31); Albumin Level 4.1 g/dL (3.5-5.0); Alkaline Phosphatase 55 U/L (39-117); Anion Gap 9 (12-20); Aspartate Amino Transferase 26 U/L (5-31); Bilirubin Total 2.2 mg/dL (0.0-1.0); Blood Urea Nitrogen 13 mg/dL (9-16); Calcium 10.1 mg/dL (8.4-10.2); Carbon Dioxide 27 mmol/L (22-29); Chloride 106 mmol/L (96-108); Cholesterol 142 mg/dL (<200); Estimated Glomerular Filt Rate > 60; Glucose Fasting 79 mg/dL (60-99); HDL Cholesterol 61 mg/dL (>40); Iron 147 mcg/dL (30-160); LDL Cholesterol Calculated 68 mg/dL (<100); Percent Iron Saturation 47 % (15-50); Potassium 4.9 mmol/L (3.3-5.1); Sodium 137 mmol/L (135-145); TSH reflex Free T4 1.83 uIU/mL (0.32-4.0); Total Iron Binding Capacity 310 mcg/dL (228-428); Total Protein 6.9 g/dL (6.5-8.0); Triglycerides 65 mg/dL (<150); Unsaturated Iron Binding 163 ug/dL; Vitamin D 25-OH Total 64.4 ng/mL (>30)
[2025-02-16 10:48] LABS: Creatinine Urine 212.84 mg/dL; Microalbum/Creatinine Ratio Ur 6.1 ug/mg cr (<30)
[2025-02-16 10:58] LABS: Folate 16.7 ng/mL (> or = 4.0); Vitamin B12 585 pg/mL (200-900)
[2025-02-17 22:34] LABS: Follicle Stimulating Hormone 5.1 mIU/mL
== END 2025-02-16 06:08 | disposition home or self-care (01) ==
LOC: HO.HMGCLDS 06:07
PROVIDERS: PCP Internal Medicine; Visit Provider Internal Medicine
DX: Z00.00 Encounter for general adult medical examination without abnormal findings (principal); I10 Essential (primary) hypertension; R79.89 Other specified abnormal findings of blood chemistry; L65.9 Nonscarring hair loss, unspecified
CPT/HCPCS: 36415; 80053; 80061; 82043; 82306; 82570; 82607; 82746; 83001; 83036; 83540; 84443; 85025

== ENCOUNTER 2025-02-19 07:58 | Outpatient (AMB) | payer BC, SELFPAY ==
[2025-02-19 08:12] VITALS: BP 110/76; PULSE 110; TEMP 37; O2SAT 100; BMI 22.8
--- NOTE | 2025-02-19 08:12 | A.OFFPC_ITS ---
Vital Signs 02/19/25 08:12 Height 5 ft 6 in Weight 141 lb BMI 22.8 BP 110/76 Blood Pressure Location Rt brachial Position Sitting Pulse 110 H Pulse Source Pulse Oximeter Temp 98.6 F Temp Source Oral Pulse Oximetry (%) 100 Oxygen Delivery Method Room Air Oxygen Flow Rate 98.6 Intake Visit Reasons: Annual PE Intake Note: Pt is here today for PE. Allergies No Known Allergies Allergy (Verified 02/19/25 08:14) Medication List - Last Reconciled 02/19/25 by Colette Mckinnon MD amlodipine 2.5 mg PO DAILY buspirone 15 mg PO TID dextroamphetamine-amphetamine 20 mg ER 1 cap PO QAM dextroamphetamine-amphetamine 5 mg 1 tab PO DAILY escitalopram oxalate 20 mg PO DAILY lorazepam 0.5 mg PO DAILY PRN minoxidil 1.5 mg PO DAILY norethindrone (contraceptive) (Kristin) 0.35 mg PO DAILY olmesartan 20 mg PO DAILY omeprazole mg PO DAILY semaglutide (weight loss) (Wegovy) 1 mg subcut QWEEK Tobacco use date assessed: 02/19/25 Dental Screening Dental Screen Date: 02/19/25 Did you have a dental visit in the last 12 months?: Yes Did you have a dental problem in the last 6 months where you did not have access to dental care?: No Was dental information given to patient?: Patient has dentist HPI Annual PE HPI Details Patient presents for physical. She lost 30 lb on Wegovy getting through online service. Patient will have a plastic surgery on excessive skin on the abdomen. Hypertension and chronic depression are controlled on current medications. [facility] Medical History GERD (gastroesophageal reflux disease) Distal radius fracture, right Elevated LFTs Hyperglycemia Achilles tendinitis Annual physical exam Obesity HPV test positive Depression HTN (hypertension) ADHD Surgical History History of esophagogastroduodenoscopy (EGD) Hx of colonoscopy H/O gastric bypass Family History Father HTN (hypertension) Mother HTN (hypertension) Diabetes mellitus Other Mental health disorder Social History Household Members Other:: well balanced diet, Housing: House Alcohol intake: current Alcohol intake frequency: does not drink Patient Tobacco Use Status: Former Tobacco user e-Cigarette/Vaping Use: Never Used Second Hand Smoke Exposure: No service: No Current occupational status: employed 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 1. Little interest or pleasure in doing things: several days 2. Feeling down, depressed, or hopeless: several days 3. Trouble falling or staying asleep, or sleeping too much: several days 4. Feeling tired or having little energy: several days 5. Poor appetite or overeating: not at all 6. Feeling bad about yourself - or that you are a failure or have let yourself or your family down: not at all 7. Trouble concentrating on things, such as reading the newspaper or watching television: several days 8. Moving or speaking so slowly that other people could have noticed. Or the opposite - being so fidgety or restless that you have been moving around a lot more than usual: not at all 9. Thoughts that you would be better off or of hurting yourself in some way: not at all Total score: 5 Depression Screening Interpretation: Negative Depression Screening Done: Yes 88761 - PHQ-9 Billing: Yes Source: Developed by Drs. Neri Harris, Renee Romero, Miguel A Helm and colleagues, with an educational [place] from [employer]. Thrive Questionnaire Date Thrive assessed: 02/19/25 I am a: Patient What is your living situation today?: I have a steady place to live Within the past 12 months, did the food you bought not last and you didn't have the money to get more?: Never true Within the past 12 months, did you worry whether your food would run out before you got money to buy more?: Never true Do you have trouble paying for medicines?: No Do you have trouble getting transportation to medical appointments?: No Do you have trouble paying your heating and electricity bill?: No Do you have trouble taking care of your child, family member or friend?: No Do you have trouble with day-to-day activities such as bathing, preparing meals, shopping, managing finances, etc.?: No Are you currently unemployed and looking for a job?: No Are you interested in more education?: No Please select the resources that you would like help with: None Currently or been in a relationship where the following occur: No concerns reported THRIVE Score: 0 AUDIT C Alcohol Use Questionnaire (AUDIT-C) 1. How often do you have a drink containing alcohol?: 2-4 times a month 2. How many drinks containing alcohol do you have on a typical day when you are drinking?: 1 or 2 3. How often do you have six or more drinks on one occasion?: Less than monthly Total Score: 3 MARIZA-7 AMB Questionnaire MARIZA-7 Date MARIZA - 7 assessed: 02/19/25 Feeling nervous, anxious, or on edge: 1 = Several days Not being able to stop or control worryin = Several days Worrying too much about different things: 1 = Several days Trouble relaxin = Several days Being so restless that it is hard to sit still: 0 = Not at all Becoming easily annoyed or irritable: 0 = Not at all Feeling afraid as if something awful might happen: 0 = Not at all Total MARIZA-7 score (0-4 normal; 5-9 mild; 10-14 moderate; 15-21 severe): 4 Source: Developed by Drs. Neri Harris, Renee Romero, Miguel A Helm and colleagues, with an educational [place] from [employer]. MARIZA-7 Assessment Billing MARIZA-7 Assessment Tool: MARIZA-7 Assessment 75966 Review of Systems Const All systems reviewed & are unremarkable except as noted in HPI and below Eyes Reports no additional complaints ENT Reports no additional complaints Card Reports no additional complaints Resp Reports no additional complaints GI Reports no additional complaints Reports no additional complaints Physical exam (Primary Care) Vital Signs: Last Vital Signs Temp 98.6 F 02/19/25 08:12 Pulse 110 H 02/19/25 08:12 BP 110/76 02/19/25 08:12 Pulse Ox 100 02/19/25 08:12 Oxygen Delivery Method Room Air 02/19/25 08:12 Oxygen Flow Rate 98.6 02/19/25 08:12 BMI result Body Mass Index 22.8 Tobacco/Smoking Status: Tobacco use Status Tobacco use date assessed 02/19/25 02/19/25 08:19 Patient Tobacco Use Status Former Tobacco user 02/19/25 08:19 e-Cigarette/Vaping Use Never Used 02/19/25 08:19 PHQ-9: PHQ-9 Score PHQ-9: Total score 5 02/19/25 08:19 Depression Screening Interpretation: Negative Thrive Assessment: Date of Thrive Assessment Date Thrive assessed 02/19/25 02/19/25 08:19 Currently or been in a relationship where the following occur: No concerns repor aj Const General: no acute distress HENMT Head: Yes normal to inspection Ears: hearing grossly normal bilaterally General nose exam: Normal external nose present Face and sinus: Yes normal facial exam Mouth: Normal oral and palatal mucosa present Throat: Yes posterior oropharynx normal Eyes General: appearance normal, both eyes and all related structures Neck Neck: Yes no lymphadenopathy and Yes supple Resp Effort & Inspection: normal respiratory effort Auscultation: clear to auscultation bilaterally Cardio Rhythm: regular rhythm Heart sounds: S1 normal heart sound present and S2 normal heart sound present GI Inspection: Yes normal to inspection Palpation (GI): Soft to palpation Percussion: Yes normal to percussion Auscultation: normal bowel sounds Coding Level of Care Code Est Pt Prev Care 40-64y(63576) Diagnoses Annual physical exam Z00.00 HTN (hypertension) I10 Depression F32.9 Additional Codes MARIZA-7 Assessment Billing - MARIZA-7 Assessment Tool: MARIZA-7 Assessment [id number] ([id number]) PHQ-9 - 98663 - PHQ-9 Billing: Yes ([id number]) Assessment & Plan Assessment & Plan (1) Annual physical exam: Code(s): Z00.00 - Encounter for general adult medical examination without abnormal findings Category: Medical Plan: Well-balanced diet regular physical activity discussed with the patient she is up-to-date with a design agent for Pap smear (2) HTN (hypertension): Code(s): I10 - Essential (primary) hypertension Category: Medical Plan: Blood pressure is low since patient lost weight. She will decrease amlodipine to 2.5 mg and continue to take a half a tablet of olmesartan. Patient will follow-up in 2 months (3) Depression: Comment: Established with Psychiatry Code(s): F32.9 - Major depressive disorder, single episode, unspecified Category: Medical Plan: Continue current medications Medications: New amlodipine 2.5 mg PO DAILY 60 tabs 0RF Refilled olmesartan 20 mg PO DAILY 90 tabs 1RF Discontinued amlodipine Discontinued Reason: Doctor's Order 5 mg PO DAILY 90 tabs 3RF I10 - Essential (primary) hypertension
== END 2025-02-19 08:45 | disposition home or self-care (01) ==
LOC: HO.HMCC 07:59
PROVIDERS: PCP Internal Medicine; Visit Provider Internal Medicine
DX: Z00.00 Encounter for general adult medical examination without abnormal findings (principal); I10 Essential (primary) hypertension; F32.9 Major depressive disorder, single episode, unspecified

== ENCOUNTER → 2025-02-19 07:58 | Outpatient (BNVA) | payer BC, SELFPAY | PROVIDERS: PCP Internal Medicine; Visit Provider Internal Medicine | DX: Z00.00 Encounter for general adult medical examination without abnormal findings (principal); I10 Essential (primary) hypertension; F32.9 Major depressive disorder, single episode, unspecified; Z79.899 Other long term (current) drug therapy | CPT/HCPCS: 96127 ==

== ENCOUNTER 2025-04-20 09:10 | Outpatient (AMB) | payer BC, SELFPAY ==
[2025-04-20 09:14] VITALS: BP 114/76; PULSE 98; TEMP 36.8; O2SAT 99; BMI 22.6
--- NOTE | 2025-04-20 09:14 | A.OFFPC_ITS ---
Vital Signs 04/20/25 09:14 Height 5 ft 6 in Weight 140 lb BMI 22.6 BP 114/76 Blood Pressure Location Rt brachial Position Sitting Pulse 98 Pulse Source Pulse Oximeter Temp 98.3 F Temp Source Oral Pulse Oximetry (%) 99 Oxygen Delivery Method Room Air Intake Visit Reasons: BP Follow up Intake Note: Pt is here today for a follow up visit on BP. Allergies No Known Allergies Allergy (Verified 04/20/25 09:29) Medication List - Last Reconciled 04/20/25 by Colette Mckinnon MD buspirone 15 mg PO TID dextroamphetamine-amphetamine 20 mg ER 1 cap PO QAM dextroamphetamine-amphetamine 5 mg 1 tab PO DAILY escitalopram oxalate 20 mg PO DAILY lorazepam 0.5 mg PO DAILY PRN minoxidil 1.5 mg PO DAILY norethindrone (contraceptive) (Kristin) 0.35 mg PO DAILY olmesartan 20 mg PO DAILY omeprazole mg PO DAILY semaglutide (weight loss) (Wegovy) 1 mg subcut QWEEK Tobacco use date assessed: 04/20/25 Dental Screening Dental Screen Date: 02/19/25 HPI BP Follow up HPI Details Patient presents for the follow-up of hypertension chronic anxiety stable on current medications. She has been taking half a dose of amlodipine and reports well-controlled blood pressure at home [facility] Medical History GERD (gastroesophageal reflux disease) Distal radius fracture, right Elevated LFTs Hyperglycemia Achilles tendinitis Annual physical exam Obesity HPV test positive Depression HTN (hypertension) ADHD Surgical History History of esophagogastroduodenoscopy (EGD) Hx of colonoscopy H/O gastric bypass Family History Father HTN (hypertension) Mother HTN (hypertension) Diabetes mellitus Other Mental health disorder Social History Household Members Other:: well balanced diet, Housing: House Alcohol intake: current Alcohol intake frequency: does not drink Patient Tobacco Use Status: Former Tobacco user e-Cigarette/Vaping Use: Never Used Second Hand Smoke Exposure: No service: No Current occupational status: employed 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, 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 Cognitive needs: No Hearing needs: No Vision needs: No Questionnaire Thrive Questionnaire Date Thrive assessed: 02/12/25 I am a: Patient What is your living situation today?: I have a steady place to live Within the past 12 months, did the food you bought not last and you didn't have the money to get more?: Never true Within the past 12 months, did you worry whether your food would run out before you got money to buy more?: Never true Do you have trouble paying for medicines?: No Do you have trouble getting transportation to medical appointments?: No Do you have trouble paying your heating and electricity bill?: No Do you have trouble taking care of your child, family member or friend?: No Do you have trouble with day-to-day activities such as bathing, preparing meals, shopping, managing finances, etc.?: No Are you currently unemployed and looking for a job?: No Are you interested in more education?: No Please select the resources that you would like help with: None Currently or been in a relationship where the following occur: No concerns reported THRIVE Score: 0 MARIZA-7 AMB Questionnaire MARIZA-7 Date MARIZA - 7 assessed: 02/19/25 Source: Developed by Drs. Neri Harris, Renee Romero, Miguel A Helm and colleagues, with an educational [place] from [employer]. Review of Systems Const All systems reviewed & are unremarkable except as noted in HPI and below ENT Reports no additional complaints Card Reports no additional complaints Resp Reports no additional complaints GI Reports no additional complaints Reports no additional complaints Physical exam (Primary Care) Vital Signs: Last Vital Signs Temp 98.3 F 04/20/25 09:14 Pulse 98 04/20/25 09:14 BP 114/76 04/20/25 09:14 Pulse Ox 99 04/20/25 09:14 Oxygen Delivery Method Room Air 04/20/25 09:14 BMI result Body Mass Index 22.6 Tobacco/Smoking Status: Tobacco use Status Tobacco use date assessed 04/20/25 04/20/25 09:16 Patient Tobacco Use Status Former Tobacco user 04/20/25 09:16 e-Cigarette/Vaping Use Never Used 04/20/25 09:16 Thrive Assessment: Date of Thrive Assessment Date Thrive assessed 02/12/25 04/20/25 09:16 Currently or been in a relationship where the following occur: No concerns reported Const General: no acute distress Eyes General: appearance normal, both eyes and all related structures Resp Effort & Inspection: normal respiratory effort Auscultation: clear to auscultation bilaterally Cardio Rhythm: regular rhythm Heart sounds: S1 normal heart sound present and S2 normal heart sound present GI Inspection: Yes normal to inspection Palpation (GI): Soft to palpation Percussion: Yes normal to percussion Auscultation: normal bowel sounds Coding Level of Care Code Est Pt Level 3 (19217) Diagnoses HTN (hypertension) I10 Depression F32.9 Assessment & Plan Assessment & Plan (1) HTN (hypertension): Code(s): I10 - Essential (primary) hypertension Category: Medical Plan: Patient will discontinue amlodipine and continue 10 mg of olmesartan. low- sodium diet regular physical activity discussed with the patient. She will follow-up in 3 months. Patient is on maintenance dose on Wegovy established with weight management program (2) Depression: Comment: Established with Psychiatry Code(s): F32.9 - Major depressive disorder, single episode, unspecified Category: Medical Plan: Continue current medications follow-up with psychiatry Medications: Changed From olmesartan 20 mg PO DAILY 90 tabs 1RF To olmesartan 1/2 tab 20 mg PO DAILY Discontinued amlodipine Discontinued Reason: Doctor's Order 2.5 mg PO DAILY 60 tabs 0RF
== END 2025-04-20 10:04 | disposition home or self-care (01) ==
LOC: HO.HMCC 09:11
PROVIDERS: PCP Internal Medicine; Visit Provider Internal Medicine
DX: I10 Essential (primary) hypertension (principal); F32.9 Major depressive disorder, single episode, unspecified

== ENCOUNTER → 2025-04-20 09:10 | Outpatient (BNVA) | payer BC, SELFPAY | PROVIDERS: PCP Internal Medicine; Visit Provider Internal Medicine | DX: Z13.89 Encounter for screening for other disorder (principal) ==

== ENCOUNTER 2025-07-20 09:13 | Outpatient (AMB) | payer BC, SELFPAY ==
--- NOTE | 2025-07-20 09:14 | A.OFFPC_ITS ---
Vital Signs 07/20/25 09:15 Height 5 ft 6 in Weight 146 lb BMI 23.6 BP 110/78 Blood Pressure Location Lt brachial Position Sitting Respiration 18 Pulse 111 H Pulse Source Pulse Oximeter Temp 98.3 F Temp Source Oral Pulse Oximetry (%) 98 Oxygen Delivery Method Room Air Intake Visit Reasons: 3m follow up Intake Note: Pt is here today for 3 months follow up visit. Allergies No Known Allergies Allergy (Verified 07/20/25 09:17) Medication List - Last Reconciled 07/20/25 by Colette Mckinnon MD buspirone 15 mg PO TID dextroamphetamine-amphetamine 20 mg ER 1 cap PO QAM dextroamphetamine-amphetamine 5 mg 1 tab PO DAILY escitalopram oxalate 20 mg PO DAILY lorazepam 0.5 mg PO DAILY PRN minoxidil 2.5 mg PO DAILY norethindrone (contraceptive) (Kristin) 0.35 mg PO DAILY olmesartan 20 mg PO DAILY omeprazole mg PO DAILY semaglutide (weight loss) (Wegovy) 1 mg subcut QWEEK Tobacco use date assessed: 07/20/25 Dental Screening Dental Screen Date: 02/19/25 HPI 3m follow up HPI Details Patient presents for the follow-up on hypertension stable on olmesartan. Chronic anxiety depression and ADHD are stable on medications patient is established with a counselor. She has been taking Wegovy for the weight loss and the weight has been stable. Patient will have a panniculectomy surgery by plastic surgeon in [place] in September [facility] Medical History (Updated 07/20/25 @ 09:51 by Colette Mckinnon MD) Tachycardia GERD (gastroesophageal reflux disease) Distal radius fracture, right Elevated LFTs Hyperglycemia Achilles tendinitis Annual physical exam Obesity HPV test positive Depression HTN (hypertension) ADHD Surgical History History of esophagogastroduodenoscopy (EGD) Hx of colonoscopy H/O gastric bypass Family History Father HTN (hypertension) Mother HTN (hypertension) Diabetes mellitus Other Mental health disorder Social History Household Members Other:: well balanced diet, Housing: House Alcohol intake: current Alcohol intake frequency: does not drink Patient Tobacco Use Status: Former Tobacco user e-Cigarette/Vaping Use: Never Used Second Hand Smoke Exposure: No service: No Current occupational status: employed 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 1. Little interest or pleasure in doing things: several days 2. Feeling down, depressed, or hopeless: several days 3. Trouble falling or staying asleep, or sleeping too much: several days 4. Feeling tired or having little energy: several days 5. Poor appetite or overeating: not at all 6. Feeling bad about yourself - or that you are a failure or have let yourself or your family down: not at all 7. Trouble concentrating on things, such as reading the newspaper or watching television: several days 8. Moving or speaking so slowly that other people could have noticed. Or the opposite - being so fidgety or restless that you have been moving around a lot more than usual: not at all 9. Thoughts that you would be better off or of hurting yourself in some way: not at all Total score: 5 Depression Screening Interpretation: Negative Depression Screening Done: Yes Source: Developed by Drs. Neri Harris, Renee Romero, Miguel A Helm and colleagues, with an educational [place] from [employer]. Thrive Questionnaire Date Thrive assessed: 02/12/25 I am a: Patient What is your living situation today?: I have a steady place to live Within the past 12 months, did the food you bought not last and you didn't have the money to get more?: Never true Within the past 12 months, did you worry whether your food would run out before you got money to buy more?: Never true Do you have trouble paying for medicines?: No Do you have trouble getting transportation to medical appointments?: No Do you have trouble paying your heating and electricity bill?: No Do you have trouble taking care of your child, family member or friend?: No Do you have trouble with day-to-day activities such as bathing, preparing meals, shopping, managing finances, etc.?: No Are you currently unemployed and looking for a job?: No Are you interested in more education?: No Please select the resources that you would like help with: None Currently or been in a relationship where the following occur: No concerns reported THRIVE Score: 0 MARIZA-7 AMB Questionnaire MARIZA-7 Date MARIZA - 7 assessed: 02/19/25 Feeling nervous, anxious, or on edge: 0 = Not at all Not being able to stop or control worryin = Not at all Worrying too much about different things: 0 = Not at all Trouble relaxin = Not at all Being so restless that it is hard to sit still: 0 = Not at all Becoming easily annoyed or irritable: 0 = Not at all Feeling afraid as if something awful might happen: 0 = Not at all Total MARIZA-7 score (0-4 normal; 5-9 mild; 10-14 moderate; 15-21 severe): 0 Source: Developed by Drs. Neri Harris, Renee Romero, Miguel A Helm and colleagues, with an educational [place] from [employer]. Review of Systems Const All systems reviewed & are unremarkable except as noted in HPI and below ENT Reports no additional complaints Card Reports no additional complaints Resp Reports no additional complaints GI Reports no additional complaints Physical exam (Primary Care) Vital Signs: Last Vital Signs Temp 98.3 F 07/20/25 09:15 Pulse 111 H 07/20/25 09:15 Resp 18 07/20/25 09:15 BP 110/78 07/20/25 09:15 Pulse Ox 98 07/20/25 09:15 Oxygen Delivery Method Room Air 07/20/25 09:15 BMI result Body Mass Index 23.6 Tobacco/Smoking Status: Tobacco use Status Tobacco use date assessed 07/20/25 07/20/25 09:22 Patient Tobacco Use Status Former Tobacco user 07/20/25 09:22 e-Cigarette/Vaping Use Never Used 07/20/25 09:22 PHQ-9: PHQ-9 Score PHQ-9: Total score 5 07/20/25 09:22 Depression Screening Interpretation: Negative Thrive Assessment: Date of Thrive Assessment Date Thrive assessed 02/12/25 07/20/25 09:22 Currently or been in a relationship where the following occur: No concerns reported Const General: no acute distress Resp Effort & Inspection: normal respiratory effort Auscultation: clear to auscultation bilaterally Cardio Rhythm: regular rhythm Heart sounds: S1 normal heart sound present and S2 normal heart sound present Coding Level of Care Code Est Pt Level 4 (50687) Diagnoses Depression F32.9 HTN (hypertension) I10 Obesity E66.9 Assessment & Plan Assessment & Plan (1) Depression: Comment: Established with Psychiatry Code(s): F32.9 - Major depressive disorder, single episode, unspecified Category: Medical Plan: Continue current medications follow-up with psychiatry and therapy (2) HTN (hypertension): Code(s): I10 - Essential (primary) hypertension Category: Medical Plan: Continue olmesartan (3) Obesity: Comment: Lost 30 lb from January 2024 till July 2024, maintaining stable weight on semaglutide Code(s): E66.9 - Obesity, unspecified Category: Medical Plan: Continue Wegovy Orders: Orders Complete Blood Count Auto Diff 2 Months I10 - Essential (primary) hypertension, R00.0 - Tachycardia, unspecified TSH reflex Free T4 2 Months I10 - Essential (primary) hypertension, R00.0 - Tachycardia, unspecified Comprehensive [place]. Panel Fast 2 Months I10 - Essential (primary) hypertension, R00.0 - Tachycardia, unspecified Lipid Panel 2 Months I10 - Essential (primary) hypertension, R00.0 - Tachycardia, unspecified
[2025-07-20 09:15] VITALS: BP 110/78; PULSE 111; RESP 18; TEMP 36.8; O2SAT 98; BMI 23.6
--- OUTSIDE RECORDS SUMMARY | 2025-07-20 09:59 | XMS_ITS | Clinical Summary ---
Author Organization [facility] Address [address] [place] [id number] Phone Care Team Providers Care Sat Tutor Name Role Phone Colette Mckinnon MD Primary Care Provider [phone] Allergies No known active allergies Medications cholecalciferol (VITAMIN D3) 2,000 unit capsule once daily 8 Active ferrous sulfate 325 mg (65 mg shoshone-bannock iron) EC tablet once daily 8 Active Medication-Free Text [facility] NATURAL FISH OIL 1200 MG ORAL CAPSULE (OMEGA-3 FATTY ACIDS); once daily Active multivitamin per tablet Take 1 tablet by mouth. Active amLODIPine (NORVASC) 5 MG tablet TAKE 1 TABLET BY MOUTH EVERY DAY 90 tablet 1 9 Active Additional Information Patient taking differently: 2.5 mg, Reported on 02/19/2025 Active Problems Problem Noted Date Diagnosed Date PUD (peptic ulcer disease) 12/13/2018 Overview (12/13/2018): Overview: s/p bariatric surgery, stricture found on EGD in July 2014 Bipolar affective disorder 12/13/2018 Overview (12/13/2018): Overview: on Lexapro for many years In remission High risk human papilloma virus (HPV) infection of cervix 06/22/2018 Assessment & Plan (12/13/2018 5:01 PM EST): Follow up with CONSERVATION TECHNICIAN as planned later this year for re-pap. Attention deficit disorder (ADD) without hyperac tivity 06/16/2018 Cigarette smoker 06/16/2018 Hypertension 06/16/2018 Assessment & Plan (12/13/2018 5:00 PM EST): Blood pressure settled down and is at goal with current medications. Pt denies side effects to meds. No med changes made at today's appointment. Mild major depression 06/16/2018 Assessment & Plan (12/13/2018 5:07 PM EST): Taking lexapro 30mg daily per psych. Currently feels stable. Preventative health care 06/16/2018 Status post bariatric surgery 06/16/2018 Assessment & Plan (12/13/2018 5:01 PM EST): Continue working on healthy diet and exercise, continue vitamin supplements. Immunizations Immunization Administration Dates Next Due HPV, unspecified formulation 10/31/2009 HPV,quadrivalent 12/26/2009 Td, unspecified formulation 06/23/2013 Family History Medical History Relation Comments No Known Problems Brother Aortic valve stenosis Father hx of bicu spid valve, s/p valve replacement Heart disease Father Hypertension Father Prostate cancer Father Diabetes mellitus Mother Diabetes melli tus Hyperlipidemia Mother FH: Hypercholest erolemia Hypertension Mother FH: Hypertension Obesity Mother Relation Status Comments Brother Father Alive Mother Alive Social History Tobacco Use Types Packs/Day Years Used Date Smoking Tobacco: Former Smokeless Tobacco: Never Comments:5/day Alcohol Use Standard Drinks/Week Comments Yes 0 (1 standard drink = 0.6 oz pur e alcohol) occ Education Answer Date Recorded Are you interested in more education? Not on marcus e 02/19/2023 Are you concerned about learning? Not on file 02/19/2023 No 02/19/2023 No 02/19/2023 Digital Access Answer Date Recorded No 03/20/2023 No 03/20/2023 Reliable internet access at home? Not on file 03/20/2023 Device with a working camera? Not on file Comments Unknown Sex and Gender Information Value Date Recorded Sex Assigned at Not on file Legal Sex Female 4:51 PM EDT Gender Identity Not on file Sexual Orientation Not on file Last Filed Vital Signs Vital Sign Reading Time Taken Comments Blood Pressure 127/75 02/19/2025 1:16 PM EDT Pulse 92 02/19/2025 1:16 PM EDT Temperature 36.8 C (98.3 F) 03/22/2018 5:08 PM EDT Respiratory Rate 16 05/08/2014 10:05 AM EDT Oxygen Saturation 98% 12/13/2018 4:29 PM EST Inhaled Oxygen Concentration - - Weight 65.5 kg (144 lb 6.4 oz) 02/19/2025 1:16 P M EDT Height 165.1 cm (5' 5 ) 02/19/2025 1:16 PM EDT Body Mass Index 24.03 02/19/2025 1:16 PM EDT Plan of Treatment Upcoming Encounters Date Type Department Care Team (Latest Contact Info) Description 10/01/2025 9:00 AM EST Office Visit [facility] Plastic Surgery [address] [place] [phone] Gene Brito MD [address] [place] [phone] 10/17/2025 Procedure Pass OR Admitting Dept - Virtual Department [address] [place] [phone] 10/17/2025 11:17 AM EST Hospital Encounter OR Admitting Dept - Virtual Department [address] [place] [address] Gnee Brito MD [address] [place] [address] 10/17/2025 11:17 AM EST - 10/17/2025 4:07 PM EST Surgery OR Admitting Dept - Virtual Department [address] [place] [phone] Gene Brito MD [address] [place] [address] PANNICULECTOMY 10/22/2025 8:30 AM EST Office Visit [facility] Plastic Surgery [address] [place] [address] Lis Gallagher PA-C [facility], [address] [address] 10/29/2025 8:30 AM EST Office Visit [facility] Plastic Surgery [address] [place] [address] Lis Gallagher PA-C [address] [facility], [address] [place] [phone] [email or web address] Scheduled Procedures Name Priority Associated Diagnoses Date/Ti me PANNICULECTOMY pannus, abdominal 10/17/2025 11:17 AM EST MASTOPEXY pannus, abdominal 10/17/2025 11:17 AM EST Health Maintenance Due Date Last Done Comments SMOKING Hx and SMOKELESS TOB ACCO SCREENING 02/10/1997 HIV ONE-TIME SCREENING (18-6 5 YEARS) 02/10/2002 DEPRESSION SCREENING 12/13/2019 12/13/2018 PAP SMEAR 06/16/2021 06/16/2018 Adult Td,Tdap Booster 06/23/2023 06/23/2013 MAMMOGRAM 2024 INFLUENZA VACCINE (#1) 2025 COVID-19 VACCINE (2 - 2024-2 6 season) 2025 01/01/2021 BLOOD PRESSURE 08/21/2025 02/19/2025 HEPATITIS C SCREENING Completed 06/17/2018 HEPATITIS A VACCINES Aged Out No long er eligible based on patient's age to complete this topic HIB VACCINES Aged Out No longer eligi ble based on patient's age to complete this topic MENINGOCOCCAL VACCINES (ACWY) Aged Out No longer eligible based on patient's age to complete this topic MENINGOCOCCAL VACCINES (B) Aged Out N o longer eligible based on patient's age to complete this topic PNEUMOCOCCAL VACCINES (0-49 years) Aged Out No longer eligible based on patient's age to complete this topic Medical Devices Not on file Procedures Procedure Name Priority Date/Time Associated Diagnosis Comments OUTSIDE HEPATITIS C VIRUS SCREENING Routine 06/17/2018 HM PAP SMEAR FOR RESULT ENTRY ONLY Routine 06/16/2018 from Last 3 Months or Most Recently Relevant to Health Maintenance Results * Outside Hepatitis C Virus Screening (06/17/2018) Hepatitis C Screening - External Neg Historical Provider MD LAB BLOOD ORDERABLES Bela l Result * HM PAP SMEAR FOR RESULT ENTRY ONLY (06/16/2018) HM Pap smear normal Historical Provider HEALTH MAINTENANCE Final Result from Last 3 Months or Most Recently Relevant to Health Maintenance Insurance PSYCHIATRIC PPO [facility] PPO BLUE CROSS OUT OF STATE PPO BLUE CROSS OUT OF [facility] PPO BLUE CROSS OUT OF STATE PPO [facility] OUT STATE PPO Care Teams Sat Tutor Relationship Specialty Start Date End Date Colette Mckinnon MD [address] [facility] [id number] PCP - General Internal Medicine 02/19/25 Additional Source Comments The information contained in this document represents components of the legal health record. It is not the complete legal health record.[facility]
== END 2025-07-20 09:43 | disposition home or self-care (01) ==
LOC: HO.HMCC 09:14
PROVIDERS: PCP Internal Medicine; Visit Provider Internal Medicine
DX: I10 Essential (primary) hypertension (principal); F32.9 Major depressive disorder, single episode, unspecified; E66.9 Obesity, unspecified; Z68.23 Body mass index [BMI] 23.0-23.9, adult

== ENCOUNTER 2025-09-19 07:14 | Outpatient (REF) | payer BC, SELFPAY ==
--- OUTSIDE RECORDS SUMMARY | 2025-09-19 07:18 | XMS_ITS | Clinical Summary ---
Author Organization [facility] Address [address] [place] [phone] Phone Care Team Providers Care Retail Service Specialist Name Role Phone Colette Mckinnon MD Primary Care Provider [phone] Allergies No known active allergies Medications cholecalciferol (VITAMIN D3) 2,000 unit capsule once daily 8 Active ferrous sulfate 325 mg (65 mg quinault iron) EC tablet once daily 8 Active [...] (12/13/2018 5:01 PM EST): Follow up with APPLICATIONS ADMINISTRATOR as planned later this year for re-pap. [...] kg (144 lb 6.4 oz) 02/19/2025 1:16 PM EDT Height 165.1 cm (5' 5 ) 02/19/2025 1:16 PM EDT Body Mass Index 24.03 02/19/2025 1:16 PM EDT Plan of Treatment Upcoming Encounters Date Type Department Care Team (Late st Contact Info) Description 10/01/2025 9:00 AM EST Office Visit [facility] Plastic Surgery [address] [place] [phone] Gene Brito MD [address] [place] [phone] 10/16/2025 8:00 AM EST Pre-Admission Testing Pre Procedure Evaluation [address] [place] [phone] Gene Brito MD [address] [place] [address] 10/17/2025 Procedure Pass OR Admitting Dept - Virtual Department [address] [place] [phone] 10/17/2025 11:17 AM EST Hospital Encounter OR Admitting Dept - Virtual Department [address] [place] [phone] Gene Brito MD [address] [place] [address], [address] [place] [address] 10/17/2025 11:17 AM EST - 10/17/2025 4:07 PM EST Surgery OR Admitting Dept - Virtual Department [address] [place] [address] Gene Brito MD [address] [place] [address], [address] [address] PANNICULECTOMY 10/22/2025 8:30 AM EST Office Visit [facility] Plastic Surgery [address] [place] [address] Lis Gallagher PA-C [address] [place] [address], [address] [address] Aggie Boateng PA [address] [place] [address], [address] [address] 10/29/2025 8:30 AM EST Office Visit [facility] Plastic Surgery [address] [place] [address] Lis Gallagher PA-C [address] [place] [phone] Scheduled Procedures Name Priority Associated Diagnoses Date/Ti me PANNICULECTOMY pannus, abdominal 10/17/2025 11:17 AM EST MASTOPEXY pannus, abdominal 10/17/2025 11:17 AM EST Health Maintenance Due Date Last Done Comments SMOKING Hx and SMOKELESS TOB ACCO SCREENING 02/10/1997 HIV ONE-TIME SCREENING (18-6 5 YEARS) 02/10/2002 DEPRESSION SCREENING 12/13/2019 12/13/2018 PAP SMEAR 06/16/2021 06/16/2018 Adult Td,Tdap Booster 06/23/2023 06/23/2013 MAMMOGRAM 2024 COVID-19 VACCINE (2 - 2024-2 6 season) 2025 01/01/2021 BLOOD PRESSURE 08/21/2025 02/19/2025 HEPATITIS C SCREENING Completed 06/17/2018 INFLUENZA VACCINE Completed 07/27/2025 HEPATITIS A VACCINES Aged Out No long [...] C Screening - External Neg Historical Provider LAB BLOOD ORDERABLES Bela l Result * PAP SMEAR FOR RESULT ENTRY ONLY (06/16/2018) Pathologist [facility] Pap smear normal Historical Provider HEALTH MAINTENANCE Final Result from Last 3 Months or Most Recently Relevant to Health Maintenance Insurance [facility] OUT STATE PPO BLUE CROSS OUT OF STATE PPO BLUE CROSS OUT OF STATE PPO BLUE CROSS OUT OF STATE PPO BLUE CROSS [place] [id number] Care Teams Retail Service Specialist Relationship Specialty Start Date End Date Colette Mckinnon MD [address] [place] [address] PCP - General Internal Medicine 02/19/25 Additional Source Comments The information contained in this document represents components of the legal health record. It is not the complete legal health record.[facility]
[2025-09-19 11:05] LABS: MANUAL DIFF FLAG NO
[2025-09-19 11:12] LABS: Hematocrit 39.5 % (37.0-47.0); Hemoglobin 13.7 g/dl (12.0-16.0); Imm Gran Abs Auto 0.02 X10*3/uL (0.00-0.03); Imm Gran Pct Auto 0.3 % (0.0-0.4); Lymphocytes Absolute Auto 1.5 X10*3/uL (1.2-4.9); Mean Corpuscular HGB Conc 34.7 g/dl (31.0-35.0); Mean Corpuscular Hemoglobin 31.4 pg (27.0-33.0); Mean Corpuscular Volume 90.6 fL (80.0-98.0); NRBC Abs Auto 0.000 X10*3/uL (0.0-0.012); NRBC Pct Auto 0.0 /100WBC (0.0-0.2); Platelet Count 284 X10*3/uL (160-400); Red Blood Count 4.36 X10*6/uL (4.20-5.50); White Blood Count 6.2 X10*3/uL (4.8-10.8)
[2025-09-19 12:56] LABS: Alanine Aminotransferase 23 U/L (0-31); Albumin Level 4.4 g/dL (3.5-5.0); Alkaline Phosphatase 57 U/L (39-117); Anion Gap 10 (12-20); Aspartate Amino Transferase 29 U/L (5-31); Blood Urea Nitrogen 12 mg/dL (9-16); Calcium 9.7 mg/dL (8.4-10.2); Carbon Dioxide 25 mmol/L (22-29); Chloride 108 mmol/L (96-108); Cholesterol 163 mg/dL (<200); Estimated Glomerular Filt Rate > 60; HDL Cholesterol 60 mg/dL (>40); Potassium 4.1 mmol/L (3.3-5.1); Sodium 139 mmol/L (135-145); Total Protein 7.1 g/dL (6.5-8.0); Triglycerides 63 mg/dL (<150)
== END 2025-09-19 07:15 | disposition home or self-care (01) ==
LOC: HO.HMGCLDS 07:14
PROVIDERS: PCP Internal Medicine; Visit Provider Internal Medicine
DX: I10 Essential (primary) hypertension (principal); R00.0 Tachycardia, unspecified
CPT/HCPCS: 36415; 80053; 80061; 84443; 85025

== ENCOUNTER 2025-09-27 09:22 | Outpatient (AMB) | payer BC, SELFPAY ==
--- NOTE | 2025-09-27 09:25 | MHC.PC.OV ---
Vital Signs 09/27/25 09:26 Height 5 ft 6 in Weight 144 lb BMI 23.2 BP 132/82 Blood Pressure Location Lt brachial Position Sitting Respiration 17 Pulse 102 H Pulse Source Pulse Oximeter Temp 98.3 F Temp Source Oral Pulse Oximetry (%) 100 Oxygen Delivery Method Room Air Intake Visit Reasons: pre-op Intake Note: Pt is here today for pre op visit. Pt is having breast lift surgery next week. Allergies No Known Allergies Allergy (Verified 09/27/25 09:27) Tobacco use date assessed: 09/27/25 Dental Screening Dental Screen Date: 02/19/25 HPI pre-op HPI Details Pt presents for preop for panniculectomy and bilateral breast reduction surgery on October 17. Hypertension is controlled on olmesartan. Patient has been physically active and eating well-balanced diet. She remains on maintenance dose on Wegovy and reports stable weight for the last 6 months. Patient is established with psychiatrist for chronic depression and anxiety, controlled on current medications [facility] Medical History (Updated 09/27/25 @ 10:01 by Colette Mckinnon MD) Tachycardia GERD (gastroesophageal reflux disease) Distal radius fracture, right Elevated LFTs Hyperglycemia Achilles tendinitis Annual physical exam Obesity HPV test positive Depression HTN (hypertension) ADHD Surgical History History of esophagogastroduodenoscopy (EGD) Hx of colonoscopy H/O gastric bypass Family History Father HTN (hypertension) Mother HTN (hypertension) Diabetes mellitus Other Mental health disorder Social History Household Members Other:: well balanced diet, Housing: House Alcohol intake: current Alcohol intake frequency: does not drink Patient Tobacco Use Status: Former Tobacco user e-Cigarette/Vaping Use: Never Used Second Hand Smoke Exposure: No service: No Current occupational status: employed 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, 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 Cognitive needs: No Hearing needs: No Vision needs: No Questionnaire Thrive Questionnaire Date Thrive assessed: 02/12/25 I am a: Patient What is your living situation today?: I have a steady place to live Within the past 12 months, did the food you bought not last and you didn't have the money to get more?: Never true Within the past 12 months, did you worry whether your food would run out before you got money to buy more?: Never true Do you have trouble paying for medicines?: No Do you have trouble getting transportation to medical appointments?: No Do you have trouble paying your heating and electricity bill?: No Do you have trouble taking care of your child, family member or friend?: No Do you have trouble with day-to-day activities such as bathing, preparing meals, shopping, managing finances, etc.?: No Are you currently unemployed and looking for a job?: No Are you interested in more education?: No Please select the resources that you would like help with: None Currently or been in a relationship where the following occur: No concerns reported THRIVE Score: 0 MARIZA-7 AMB Questionnaire MARIZA-7 Date MARIZA - 7 assessed: 02/19/25 Source: Developed by Drs. Neri Harris, Renee Romero, Miguel A Helm and colleagues, with an educational [place] from [email or web address]. Review of Systems Const All systems reviewed & are unremarkable except as noted in HPI and below Eyes Reports no additional complaints ENT Reports no additional complaints Card Reports no additional complaints Resp Reports no additional complaints GI Reports no additional complaints Reports no additional complaints Physical exam (Primary Care) Vital Signs: Last Vital Signs Temp 98.3 F 09/27/25 09:26 Pulse 102 H 09/27/25 09:26 Resp 17 09/27/25 09:26 BP 132/82 09/27/25 09:26 Pulse Ox 100 09/27/25 09:26 Oxygen Delivery Method Room Air 09/27/25 09:26 BMI result Body Mass Index 23.2 Tobacco/Smoking Status: Tobacco use Status Tobacco use date assessed 09/27/25 09/27/25 09:32 Patient Tobacco Use Status Former Tobacco user 09/27/25 09:26 e-Cigarette/Vaping Use Never Used 09/27/25 09:26 Thrive Assessment: Date of Thrive Assessment Date Thrive assessed 02/12/25 09/27/25 09:26 Currently or been in a relationship where the following occur: No concerns reported Const General: no acute distress HENMT Head: Yes normal to inspection Ears: TM's normal bilaterally Neck Neck: Yes supple Resp Effort & Inspection: normal respiratory effort Auscultation: clear to auscultation bilaterally Cardio Rhythm: regular rhythm Heart sounds: S1 normal heart sound present and S2 normal heart sound present GI Inspection: Yes normal to inspection Palpation (GI): Soft to palpation Percussion: Yes normal to percussion Coding Level of Care Code Est Pt Level 4 (21622) Diagnoses HTN (hypertension) I10 Depression F32.9 Breast hypertrophy in female N62 Abdominal panniculus E65 Assessment & Plan Assessment & Plan (1) HTN (hypertension): Code(s): I10 - Essential (primary) hypertension Category: Medical Plan: Continue olmesartan (2) Depression: Comment: Established with Psychiatry Code(s): F32.9 - Major depressive disorder, single episode, unspecified Category: Medical Plan: Continue current medications (3) Breast hypertrophy in female: Code(s): N62 - Hypertrophy of breast Category: Medical Plan: Patient is medically cleared for breast reduction surgery (4) Abdominal panniculus: Code(s): E65 - Localized adiposity Category: Medical Plan: Patient is medically cleared for panniculectomy
[2025-09-27 09:26] VITALS: BP 132/82; PULSE 102; RESP 17; TEMP 36.8; O2SAT 100; BMI 23.2
== END 2025-09-27 10:01 | disposition home or self-care (01) ==
LOC: HO.HMCC 09:23
PROVIDERS: PCP Internal Medicine; Visit Provider Internal Medicine
DX: I10 Essential (primary) hypertension (principal); F32.9 Major depressive disorder, single episode, unspecified; N62 Hypertrophy of breast; E65 Localized adiposity